=== PATIENT | female | born 1985 | race Caucasian/White ===

== ENCOUNTER 2019-02-09 14:49 | Emergency (ER) | payer SELFPAY ==
--- NOTE | 2019-02-09 15:20 | ER ---
Nurse's Notes [facility] Name: Britney Barroso Age: 33 yrs Sex: Female : 1985 Arrival Date: 02/09/2019 Time: 14:51 Bed 18 Private MD: Diagnosis: Bronchitis, not specified as acute or chronic;Acute sinusitis Presentation: 02/09 14:59 Presenting complaint: Patient states: sinus congestion for 2 weeks, started with cough la1 today. Transition of care: patient was not received from another setting of care. Onset of symptoms was February 09, 2019. Risk Assessment: Do you want to hurt yourself or someone else? Patient reports no desire to harm self or others. Initial Sepsis Screen: Does the patient meet any 2 criteria? No. Patient's initial sepsis screen is negative. Does the patient have a suspected source of infection? No. Patient's initial sepsis screen is negative. Care prior to arrival: None. 14:59 Method Of Arrival: Ambulatory la1 14:59 Acuity: CHRIS 4 la1 Triage Assessment: 15:20 General: Appears in no apparent distress. comfortable, Behavior is calm, cooperative, ch appropriate for age. 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 - Social history:: Smoking status: Patient/guardian denies using tobacco. - Ebola Screening: : No symptoms or risks identified at this time. Screenin:00 Abuse screen: Denies threats or abuse. Denies injuries from another. Nutritional ch screening: No deficits noted. Tuberculosis screening: No symptoms or risk factors identified. Fall Risk None identified. Assessment: 15:00 General: Appears in no apparent distress. comfortable, Behavior is calm. Pain: Complains of pain in forehead, right eye, right cheek, left cheek and left eye Pain currently is 7 out of 10 on a pain scale. Pain began gradually. 15:00 Neuro: No deficits noted. Respiratory: No deficits noted. Reports cough that is. GI: No ch signs and/or symptoms were reported involving the gastrointestinal system. EENT: Reports nasal congestion. Derm: No signs and/or symptoms reported regarding the dermatologic system. Vital Signs: 15:00 BP 111 / 81; Pulse 84; Resp 16; Temp 98.4; Pulse Ox 100% on R/A; Weight 86.18 kg; la1 Height 5 ft. 3 in. (160.02 cm); 15:00 Body Mass Index 33.66 (86.18 kg, 160.02 cm) la1 ED Course: 14:51 Patient arrived in ED. mr 14:57 Kya Hall F[facility]-C [facility]. snw 14:57 Bhupendra Melchor MD is Attending Physician. snw 14:59 Triage completed. la1 15:00 Arm band placed on left wrist. la1 15:00 Patient has correct armband on for positive identification. Bed in low position. Call light in reach. 15:00 No provider procedures requiring assistance completed. Patient did not have IV access ch during this emergency room visit. 15:19 Farzaneh Cronin, RN is Primary Nurse. ch 15:30 No apparent distress. Resting quietly. ch Administered Medications: 15:21 Drug: Augmentin 875 mg Route: PO; ch 15:32 Follow up: Response: Medication administered at discharge. ch 15:22 Drug: Pepcid 20 mg Route: PO; ch 15:32 Follow up: Response: Medication administered at discharge. ch 15:30 Drug: predniSONE 40 mg Route: PO; ch 15:32 Follow up: Response: Medication administered at discharge. ch 15:31 CANCELLED (Patient Refused): ZyrTEC - Cetirizine 10 mg PO once ch Outcome: 15:19 Discharge ordered by . snw 15:30 Discharged to home ambulatory. ch 15:30 Condition: improved 15:30 Discharge instructions given to patient, Instructed on discharge instructions, follow up and referral plans. medication usage, Demonstrated understanding of instructions, follow-up care, medications, Prescriptions given X 4. 15:33 Patient left the ED. ch Signatures: Farzaneh Cronin, SHARIFA SKAGGS Kya Hall FNP-C FNP-Albaro Sheila Gorman, Omi, RN RN la1
--- NOTE | 2019-02-09 15:20 | EDPHYS ---
Physician Documentation [facility] Name: Britney Barroso Age: 33 yrs Sex: Female : 1985 Arrival Date: 02/09/2019 Time: 14:51 Bed 18 Private MD: ED Physician Bhupendra Melchor HPI: 02/09 15:38 This 33 yrs old Female presents to ER via Ambulatory with complaints of Sinus snw Congestion. 15:38 The patient or guardian reports cough, described as moderate, congestion. Onset: The snw symptoms/episode began/occurred gradually, 2.5 week(s) ago, and became worse and became persistent. Severity of symptoms: At their worst the symptoms were moderate, in the emergency department the symptoms are unchanged. Associated signs and symptoms: Pertinent positives: sore throat, cough, congestion. It is unknown whether or not the patient has had similar symptoms in the past. It is unknown whether or not the patient has recently seen a physician. 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 - Social history:: Smoking status: Patient/guardian denies using tobacco. - Ebola Screening: : No symptoms or risks identified at this time. ROS: 15:28 Eyes: Negative for injury, pain, redness, and discharge. snw 15:28 Neck: Negative for injury, pain, and swelling, Cardiovascular: Negative for chest pain, palpitations, and edema. 15:28 Abdomen/GI: Negative for abdominal pain, nausea, vomiting, diarrhea, and constipation, Back: Negative for injury and pain, : Negative for injury, bleeding, discharge, and swelling, MS/Extremity: Negative for injury and deformity, Skin: Negative for injury, rash, and discoloration. 15:28 Constitutional: Positive for body aches, malaise. 15:28 ENT: Positive for ear pain. 15:28 Respiratory: Positive for cough. 15:28 Neuro: Positive for headache, with cough. Exam: 15:27 Constitutional: This is a well developed, well nourished patient who is awake, alert, snw and in no acute distress. 15:27 Eyes: Pupils equal round and reactive to light, extra-ocular motions intact. Lids and lashes normal. Conjunctiva and sclera are non-icteric and not injected. Cornea within normal limits. Periorbital areas with no swelling, redness, or edema. ENT: Nares patent. No nasal discharge, no septal abnormalities noted. Tympanic membranes are normal and external auditory canals are clear. Oropharynx with no redness, swelling, or masses, exudates, or evidence of obstruction, uvula midline. Mucous membranes moist. Neck: Trachea midline, no thyromegaly or masses palpated, and no cervical lymphadenopathy. Supple, full range of motion without nuchal rigidity, or vertebral point tenderness. No Meningismus. Chest/axilla: Normal chest wall appearance and motion. Nontender with no deformity. No lesions are appreciated. Cardiovascular: Regular rate and rhythm with a normal S1 and S2. No gallops, murmurs, or rubs. Normal PMI, no JVD. No pulse deficits. Abdomen/GI: Soft, non-tender, with normal bowel sounds. No distension or tympany. No guarding or rebound. No evidence of tenderness throughout. Back: No spinal tenderness. No costovertebral tenderness. Full range of motion. Skin: Warm, dry with normal turgor. Normal color with no rashes, no lesions, and no evidence of cellulitis. MS/ Extremity: Pulses equal, no cyanosis. Neurovascular intact. Full, normal range of motion. Neuro: Awake and alert, GCS 15, oriented to person, place, time, and situation. Cranial nerves II-XII grossly intact. Motor strength 5/5 in all extremities. Sensory grossly intact. Cerebellar exam normal. Normal gait. Psych: Awake, alert, with orientation to person, place and time. Behavior, mood, and affect are within normal limits. 15:27 Head/face: Sinus tenderness, that is moderate. 15:27 Respiratory: the patient does not display signs of respiratory distress, Respirations: normal, Breath sounds: + upper airway congestion. bronchitic cough. Vital Signs: 15:00 BP 111 / 81; Pulse 84; Resp 16; Temp 98.4; Pulse Ox 100% on R/A; Weight 86.18 kg; la1 Height 5 ft. 3 in. (160.02 cm); 15:00 Body Mass Index 33.66 (86.18 kg, 160.02 cm) la1 MDM: 15:01 Patient medically screened. snw 15:28 Data reviewed: vital signs, nurses notes. Data interpreted: Pulse oximetry: on room air snw is 100 %. Interpretation: normal. Counseling: I had a detailed discussion with the patient and/or guardian regarding: the historical points, exam findings, and any diagnostic results supporting the discharge/admit diagnosis, the presence of at least one elevated blood pressure reading (>120/80) during this emergency department visit, the need for outpatient follow up, to return to the emergency department if symptoms worsen or persist or if there are any questions or concerns that arise at home. Special discussion: I have referred the patient to see his PCP for further evaluation of high blood pressure. Based on the history and exam findings, there is no indication for further emergent testing or inpatient evaluation. I discussed with the patient/guardian the need to see the primary care provider for further evaluation of the symptoms. Administered Medications: 15:21 Drug: Augmentin 875 mg Route: PO; ch 15:32 Follow up: Response: Medication administered at discharge. ch 15:22 Drug: Pepcid 20 mg Route: PO; ch 15:32 Follow up: Response: Medication administered at discharge. ch 15:30 Drug: predniSONE 40 mg Route: PO; ch 15:32 Follow up: Response: Medication administered at discharge. ch 15:31 CANCELLED (Patient Refused): ZyrTEC - Cetirizine 10 mg PO once ch Disposition: 16:22 Co-signature as Attending Physician, Bhupendra Melchor MD I agree with the assessment and kdr plan of care. Disposition: 02/09/19 15:19 Discharged to Home. Impression: Bronchitis, not specified as acute or chronic, Acute sinusitis. - Condition is Stable. - Discharge Instructions: Acute Bronchitis, Adult, Hypertension, Sinusitis, Adult, Rehydration, Adult. - Prescriptions for Augmentin 875- 125 mg Oral Tablet - take 1 tablet by ORAL route every 12 hours for 10 days; 20 tablet. Zyrtec 10 mg Oral Tablet - take 1 tablet by ORAL route once daily As needed; 20 tablet. Tessalon Perles 100 mg Oral Capsule - take 1 capsule by ORAL route every 8 hours As needed; 15 capsule. Prednisone 20 mg Oral Tablet - take 2 tablet by ORAL route once daily for 5 days; 10 tablet. - Work release form, Medication Reconciliation Form, Thank You Letter, Antibiotic Education, Prescription Opioid Use form. - Follow up: Private Physician; When: 1 week; Reason: Recheck today's complaints, Continuance of care, Re-evaluation by your physician. Follow up: Emergency Department; When: As needed; Reason: Worsening of condition. Signatures: Farzaneh Cronin, RN RN Bhupendra Melchor MD MD [facility] Kya Hall, FIRE HYDRANT MECHANIC-C FIRE HYDRANT MECHANIC-Csnw Omi España RN RN la1 Corrections: (The following items were deleted from the chart) 15:31 15:18 ZyrTEC - Cetirizine 10 mg PO once ordered. [facility] 15:31 15:31 ZyrTEC - Cetirizine 10 mg PO once ordered. [facility] 15:33 15:19 02/09/2019 15:19 Discharged to Home. Impression: Bronchitis, not specified as ch acute or chronic; Acute sinusitis. Condition is Stable. Forms are Medication Reconciliation Form, Thank You Letter, Antibiotic Education, Prescription Opioid Use. Follow up: Private Physician; When: 1 week; Reason: Recheck today's complaints, Continuance of care, Re-evaluation by your physician. Follow up: Emergency Department; When: As needed; Reason: Worsening of condition. snw
[2019-02-09] MEDS ORDERED: CETIRIZINE HCL 5 MG TABLET ONE (15:22)
[2019-02-09] MEDS ORDERED: AMOX/K CLAV 875 MG TAB ONE (15:23)
[2019-02-09] MEDS ORDERED: predniSONE 20 MG TAB ONE (15:23)
[2019-02-09] MEDS ORDERED: FAMOTIDINE 20 MG TAB ONE (15:23)
[2019-02-09 16:23] VITALS: BP 111/81; TEMP 98.4; O2SAT 100
== END 2019-02-09 15:33 | disposition home or self-care (01) ==
LOC: ER 14:49
DX: J40 Bronchitis, not specified as acute or chronic (principal); J01.90 Acute sinusitis, unspecified; Z91.09 Other allergy status, other than to drugs and biological substances
CPT/HCPCS: 99283; J7512

== ENCOUNTER 2019-03-17 15:26 | Emergency (ER) | payer SELFPAY ==
--- NOTE | 2019-03-17 16:48 | ER ---
Nurse's Notes [facility] Name: Britney Barroso Age: 33 yrs Sex: Female : 1985 Arrival Date: 03/17/2019 Time: 15:29 Bed 9 Private MD: Diagnosis: Cough Presentation: 03/17 15:34 Presenting complaint: Patient states: cough for 1.5 months. Transition of care: patient la1 was not received from another setting of care. Onset of symptoms was March 17, 2019. Risk Assessment: Do you want to hurt yourself or someone else? Patient reports no desire to harm self or others. Initial Sepsis Screen: Does the patient meet any 2 criteria? No. Patient's initial sepsis screen is negative. Does the patient have a suspected source of infection? No. Patient's initial sepsis screen is negative. Care prior to arrival: None. 15:34 Method Of Arrival: Ambulatory la1 15:34 Acuity: CHRIS 5 la1 Historical: - Allergies: 15:35 Iodine; la1 - PMHx: 15:35 Anemia; Asthma; Hypokalemia; la1 - Immunization history:: Adult Immunizations up to date. - Social history:: Smoking status: Patient/guardian denies using tobacco. - Ebola Screening: : No symptoms or risks identified at this time. Screenin:32 Abuse screen: Denies threats or abuse. Denies injuries from another. Nutritional ss screening: No deficits noted. Tuberculosis screening: Never had TB. Fall Risk None identified. Vital Signs: 15:35 BP 121 / 80; Pulse 86; Resp 16; Temp 97.1; Pulse Ox 100% on R/A; Weight 86.18 kg; la1 Height 5 ft. 3 in. (160.02 cm); 15:35 Body Mass Index 33.66 (86.18 kg, 160.02 cm) la1 ED Course: 15:29 Patient arrived in ED. as 15:34 Triage completed. la1 15:35 Arm band placed on right wrist. la1 16:10 Sanjay Eagle PA is PHCP. jr8 16:10 David Castillo MD is Attending Physician. jr8 16:32 June Gilliland RN is Primary Nurse. ss 16:32 Patient has correct armband on for positive identification. Bed in low position. Call ss light in reach. 16:47 XRAY Chest Pa And Lat (2 Views) In Process Unspecified. EDMS 16:48 Joshua Ryan MD is Referral Physician. jr8 Administered Medications: No medications were administered Outcome: 16:48 Discharge ordered by . gifty 17:09 Patient left the ED. eb Signatures: Dispatcher [employer] EDKY Maren Franklin Shelby, RN RN Sanjay Eagle PA PA jr8 Omi España RN RN la Mai Haines eb
--- NOTE | 2019-03-17 16:49 | EDPHYS ---
Physician Documentation [facility] Name: Britney Barroso Age: 33 yrs Sex: Female : 1985 Arrival Date: 03/17/2019 Time: 15:29 Bed 9 Private MD: ED Physician David Castillo HPI: 03/17 16:36 This 33 yrs old Female presents to ER via Ambulatory with complaints of Cough.jr8 16:36 The patient or guardian reports cough, that is intermittent, described as moderate, jr8 with no sputum. Onset: The symptoms/episode began/occurred gradually, 2 month(s) ago. Severity of symptoms: At their worst the symptoms were moderate, in the emergency department the symptoms are unchanged. Modifying factors: The symptoms are alleviated by nothing, the symptoms are aggravated by nothing. Associated signs and symptoms: The patient has no apparent associated signs or symptoms. The patient has not experienced similar symptoms in the past. The patient has not recently seen a physician. Patient stated that she had URI about 2 months ago. Stated that since then she has had a persistent cough that is not going away despite OTC medications and prescribed meds at that time . Historical: - Allergies: 15:35 Iodine; la1 - PMHx: 15:35 Anemia; Asthma; Hypokalemia; la1 - Immunization history:: Adult Immunizations up to date. - Social history:: Smoking status: Patient/guardian denies using tobacco. - Ebola Screening: : No symptoms or risks identified at this time. ROS: 16:36 Eyes: Negative for injury, pain, redness, and discharge, ENT: Negative for injury, jr8 pain, and discharge, Neck: Negative for injury, pain, and swelling, Cardiovascular: Negative for chest pain, palpitations, and edema, Abdomen/GI: Negative for abdominal pain, nausea, vomiting, diarrhea, and constipation, Back: Negative for injury and pain, MS/Extremity: Negative for injury and deformity, Skin: Negative for injury, rash, and discoloration, Neuro: Negative for headache, weakness, numbness, tingling, and seizure. 16:36 Respiratory: Positive for cough, Negative for dyspnea on exertion, shortness of breath, sputum production, wheezing. Exam: 16:36 Eyes: Pupils equal round and reactive to light, extra-ocular motions intact. Lids and jr8 lashes normal. Conjunctiva and sclera are non-icteric and not injected. Cornea within normal limits. Periorbital areas with no swelling, redness, or edema. ENT: Nares patent. No nasal discharge, no septal abnormalities noted. Tympanic membranes are normal and external auditory canals are clear. Oropharynx with no redness, swelling, or masses, exudates, or evidence of obstruction, uvula midline. Mucous membranes moist. Neck: Trachea midline, no thyromegaly or masses palpated, and no cervical lymphadenopathy. Supple, full range of motion without nuchal rigidity, or vertebral point tenderness. No Meningismus. Cardiovascular: Regular rate and rhythm with a normal S1 and S2. No gallops, murmurs, or rubs. Normal PMI, no JVD. No pulse deficits. Abdomen/GI: Soft, non-tender, with normal bowel sounds. No distension or tympany. No guarding or rebound. No evidence of tenderness throughout. Back: No spinal tenderness. No costovertebral tenderness. Full range of motion. Skin: Warm, dry with normal turgor. Normal color with no rashes, no lesions, and no evidence of cellulitis. MS/ Extremity: Pulses equal, no cyanosis. Neurovascular intact. Full, normal range of motion. Neuro: Awake and alert, GCS 15, oriented to person, place, time, and situation. Cranial nerves II-XII grossly intact. Motor strength 5/5 in all extremities. Sensory grossly intact. Cerebellar exam normal. Normal gait. 16:36 Respiratory: the patient does not display signs of respiratory distress, Respirations: normal, symetrical, no use of accessory muscles, no grunting, no evidence of nasal flaring, no prolonged exhalations, no pursed lip breathing, no retractions, no shallow respirations, no splinting, no tachypnea, Breath sounds: are clear throughout, no bronchial sounds, no decreased breath sounds, no rales, rhonchi, no stridor, no wheezing. Vital Signs: 15:35 BP 121 / 80; Pulse 86; Resp 16; Temp 97.1; Pulse Ox 100% on R/A; Weight 86.18 kg; la1 Height 5 ft. 3 in. (160.02 cm); 15:35 Body Mass Index 33.66 (86.18 kg, 160.02 cm) la1 MDM: 16:12 Patient medically screened. jr8 16:47 Data reviewed: vital signs, nurses notes, radiologic studies, plain films. Data jr8 interpreted: Pulse oximetry: on room air is 100 %. Interpretation: normal. 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 03/17 16:20 Order name: XRAY Chest Pa And Lat (2 Views) jr8 Administered Medications: No medications were administered Disposition: 17:30 Co-signature as Attending Physician, David Castillo MD. rn Disposition: 03/17/19 16:48 Discharged to Home. Impression: Cough. - Condition is Stable. - Discharge Instructions: Cough, Adult. - Prescriptions for Prednisone 20 mg Oral Tablet - take 1 tablet by ORAL route once daily for 5 days; 5 tablet. Zithromax Z- Sincere 250 mg Oral Tablet - take 1 tablet by ORAL route as directed for 5 days Day 1 - take two (2) tablets one time. Day 2, 3, 4 , 5 take one (1) tablet once daily.; 6 tablet. Albuterol Sulfate 90 mcg/actuation - inhale 1-2 puff by INHALATION route every 4-6 hours; 1 Inhaler. - Medication Reconciliation Form, Thank You Letter, Antibiotic Education, Prescription Opioid Use, Work release form form. - Follow up: Joshua Ryan MD; When: 7 - 10 days; Reason: Recheck today's complaints, Continuance of care, Re-evaluation by your physician. - Problem is new. - Symptoms are unchanged. Signatures: Dispatcher [employer] EDMS David Castillo MD MD rn Roszak, Josh, PA PA jr8 Omi España RN RN [email or web address] Mai Haines Corrections: (The following items were deleted from the chart) 17:09 16:48 03/17/2019 16:48 Discharged to Home. Impression: Cough. Condition is Stable. eb Forms are Medication Reconciliation Form, Thank You Letter, Antibiotic Education, Prescription Opioid Use. Follow up: Joshua Ryan; When: 7 - 10 days; Reason: Recheck today's complaints, Continuance of care, Re-evaluation by your physician. Problem is new. Symptoms are unchanged. jr8
[2019-03-17 17:58] VITALS: BP 121/80; TEMP 97.1; O2SAT 100
--- NOTE | 2019-03-17 18:06 | RAD REPORT ---
EXAM DESCRIPTION: Nima [place] (2 Views)03/17/2019 4:42 pm CLINICAL HISTORY: Cough COMPARISON: None FINDINGS: The lungs appear clear of acute infiltrate. The heart is normal size IMPRESSION: No acute abnormalities displayed
== END 2019-03-17 17:09 | disposition home or self-care (01) ==
LOC: ER 15:26
DX: R05 Cough (principal); Z91.048 Other nonmedicinal substance allergy status
CPT/HCPCS: 71046; 99282

== ENCOUNTER 2019-08-08 09:01 | Emergency (ER) | payer OTHER, SELFPAY ==
[2019-08-08 09:45] LABS: Absolute Lymphocytes (CBC) 1.3 K/uL (0.7-4.9); Hematocrit 33.7 % (36.0-45.0); Lymphocytes % 24.8 % (15.3-44.8); MPV 8.3 fL (7.6-11.3); RBC Red Blood Cell Count 4.18 M/uL (3.86-4.86)
[2019-08-08 09:55] LABS: Urine Blood 3+ (NEG); Urine Glucose NEGATIVE (NEG); Urine Protein NEGATIVE (NEG)
[2019-08-08 10:01] LABS: BUN Blood Urea Nitrogen 7 mg/dL (7-18); Bicarbonate 27 mmol/L (21-32); Glucose Level 92 mg/dL (74-106); Potassium 3.7 mmol/L (3.5-5.1); Sodium Level 142 mmol/L (136-145)
[2019-08-08 10:02] LABS: HCG, Quantitative < 1 mIU/mL (1-3)
--- NOTE | 2019-08-08 11:08 | EDPHYS ---
Physician Documentation [facility] Name: Britney Barroso Age: 33 yrs Sex: Female : 1985 Arrival Date: 08/08/2019 Time: 09:02 Bed 13 Private MD: CAMRYN Physician Lamberto Parekh HPI: 08/07 09:09 This 33 yrs old Female presents to ER via Unassigned with complaints of kb Vaginal Bleeding, + Preg <12wks. 09:09 The patient presents to the emergency department with abdominal pain, that started kb yesterday, vaginal bleeding, that is moderate. course: care: at a clinic, Leakage of Fluid: none appreciated. Previous pregnancies: in previous pregnancies patient has had. Associated signs and symptoms: Pertinent positives: abdominal pain, vaginal bleeding, Pertinent negatives: chest pain, diarrhea, dysuria, fever, frequency, nausea, ruptured membranes, seizure, shortness of breath, vaginal discharge, vomiting. The patient has not experienced similar symptoms in the past. The patient has not recently seen a physician. 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 - Social history:: Smoking status: Patient denies any tobacco usage or history of. ROS: 09:15 Constitutional: Negative for fever, chills, and weight loss, Cardiovascular: Negative kb for chest pain, palpitations, and edema, Respiratory: Negative for shortness of breath, cough, wheezing, and pleuritic chest pain, Back: Negative for injury and pain, MS/Extremity: Negative for injury and deformity, Skin: Negative for injury, rash, and discoloration, Neuro: Negative for headache, weakness, numbness, tingling, and seizure. 09:15 Abdomen/GI: Positive for abdominal pain, Negative for nausea, vomiting, and diarrhea. 09:15 : Positive for vaginal bleeding. Exam: 09:15 Constitutional: This is a well developed, well nourished patient who is awake, alert, kb and in no acute distress. Head/Face: Normocephalic, atraumatic. Chest/axilla: Normal chest wall appearance and motion. Nontender with no deformity. No lesions are appreciated. Cardiovascular: Regular rate and rhythm with a normal S1 and S2. No gallops, murmurs, or rubs. Normal PMI, no JVD. No pulse deficits. Respiratory: Lungs have equal breath sounds bilaterally, clear to auscultation and percussion. No rales, rhonchi or wheezes noted. No increased work of breathing, no retractions or nasal flaring. Back: No spinal tenderness. No costovertebral tenderness. Full range of motion. Skin: Warm, dry with normal turgor. Normal color with no rashes, no lesions, and no evidence of cellulitis. MS/ Extremity: Pulses equal, no cyanosis. Neurovascular intact. Full, normal range of motion. Neuro: Awake and alert, GCS 15, oriented to person, place, time, and situation. Cranial nerves II-XII grossly intact. Motor strength 5/5 in all extremities. Sensory grossly intact. Cerebellar exam normal. Normal gait. 09:15 Abdomen/GI: Inspection: abdomen appears normal, Bowel sounds: normal, in all quadrants, Palpation: soft, in all quadrants, moderate abdominal tenderness, in all quadrants. Vital Signs: 09:13 BP 132 / 98; Pulse 83; Resp 17; Temp 97.3; Pulse Ox 100% ; Weight 89.36 kg; Height 5 jl7 ft. 6 in. (167.64 cm); Pain 8/10; 09:40 BP 105 / 73; Pulse 78; Resp 16; Temp 97.5(TE); Pulse Ox 100% on R/A; 5 10:45 BP 108 / 78; Pulse 72; Resp 16 S; Pulse Ox 100% on R/A; jl7 09:13 Body Mass Index 31.80 (89.36 kg, 167.64 cm) jl7 MDM: 09:05 Patient medically screened. kb 09:16 Data reviewed: vital signs, nurses notes. Data interpreted: Pulse oximetry: on room air kb is 100 %. Interpretation: normal. 11:05 Counseling: I had a detailed discussion with the patient and/or guardian regarding: the kb historical points, exam findings, and any diagnostic results supporting the discharge/admit diagnosis, lab results, radiology results, the need for outpatient follow up, a family practitioner, to return to the emergency department if symptoms worsen or persist or if there are any questions or concerns that arise at home. 08/07 09:05 Order name: Quantitative Hcg kb 08/07 09:05 Order name: Abo/rh Typing; Complete Time: 09:54 kb 08/07 09:05 Order name: Basic Metabolic Panel; Complete Time: 10:02 kb 08/07 09:05 Order name: CBC with Diff; Complete Time: 09:47 kb 08/07 09:07 Order name: HCG, Quantitative; Complete Time: 10:02 EDMS 08/07 09:41 Order name: Urine Dipstick--Ancillary (enter results); Complete Time: 09:56 bd 08/07 09:05 Order name: Urine Test (obtain specimen); Complete Time: 09:37 kb 08/07 09:05 Order name: IV Saline Lock; Complete Time: 09:37 kb 08/07 09:05 Order name: Labs collected and sent; Complete Time: 09:37 kb 08/07 09:05 Order name: NPO; Complete Time: 09:38 kb 08/07 09:05 Order name: Urine Dipstick-Ancillary (obtain specimen); Complete Time: 09:37 kb 08/07 09:39 Order name: Diet Npo; Complete Time: 09:40 mh5 08/07 09:41 Order name: Urine --Ancillary (enter results); Complete Time: 09:56 bd 08/07 10:06 Order name: US Transvaginal Study (Probe) Administered Medications: No medications were administered Point of Care Testing: Urine : 11:16 hCG Reading: Negative; Control Reading: Positive; jl7 Disposition: 12:47 Co-signature as Attending Physician, Lamberto Parekh MD I agree with the assessment and fazal plan of care. Disposition: 08/08/19 11:07 Discharged to Home. Impression: Abnormal uterine and vaginal bleeding, unspecified. - Condition is Stable. - Discharge Instructions: Abnormal Uterine Bleeding, [id number]. - Medication Reconciliation Form, Thank You Letter, Antibiotic Education, Prescription Opioid Use form. - Follow up: Emergency Department; When: As needed; Reason: Worsening of condition. Follow up: Private Physician; When: 2 - 3 days; Reason: Recheck today's complaints, Continuance of care, Re-evaluation by your physician. Signatures: Dispatcher [employer] Lavinia De La Vega, JAMEL-Arin MCCULLOUGH-Lamberto Dennison MD MD cha Leal, Jahala, RN RN jl7 Corrections: (The following items were deleted from the chart) 11:17 11:07 08/08/2019 11:07 Discharged to Home. Impression: Abnormal uterine and vaginal jl7 bleeding, unspecified. Condition is Stable. Forms are Medication Reconciliation Form, Thank You Letter, Antibiotic Education, Prescription Opioid Use. Follow up: Emergency Department; When: As needed; Reason: Worsening of condition. Follow up: Private Physician; When: 2 - 3 days; Reason: Recheck today's complaints, Continuance of care, Re-evaluation by your physician. kb
--- NOTE | 2019-08-08 11:08 | ER ---
Nurse's Notes [facility] Name: Britney Barroso Age: 33 yrs Sex: Female : 1985 Arrival Date: 08/08/2019 Time: 09:02 Bed 13 Private MD: Diagnosis: Abnormal uterine and vaginal bleeding, unspecified Presentation: 08/07 09:13 Chief complaint: Patient states: had intercourse yesterday morning, started bleeding jl7 last night with lower abdominal pain. Coronavirus screen: Proceed with normal triage. Patient denies a cough. Patient denies shortness of breath or difficulty breathing. Patient denies measured and/or subjective temperature greater than 100.4F prior to today's visit. Patient denies travel on a cruise ship or to a country the [facility] currently lists as an affected area. Patient denies contact with known and/or suspected case of COVID-19. Ebola Screen: No symptoms or risks identified at this time. Initial Sepsis Screen: Does the patient meet any 2 criteria? No. Patient's initial sepsis screen is negative. Does the patient have a suspected source of infection? No. Patient's initial sepsis screen is negative. Risk Assessment: Do you want to hurt yourself or someone else? Patient reports no desire to harm self or others. Onset of symptoms was August 07, 2019. 09:13 Method Of Arrival: Ambulatory 7 09:13 Acuity: CHRIS 3 jl7 Triage Assessment: 09:16 General: Appears in no apparent distress. uncomfortable, Behavior is cooperative, jl7 appropriate for age, anxious. Pain: Complains of pain in suprapubic area, right lower quadrant and left lower quadrant Pain currently is 8 out of 10 on a pain scale. Neuro: Level of Consciousness is awake, alert, obeys commands, Oriented to person, place, time, situation. Cardiovascular: Patient's skin is warm and dry. Respiratory: Airway is patent Respiratory effort is even, unlabored, Respiratory pattern is regular, symmetrical. GI: Last BM was August 06, 2019. Reports normal bowel habits. : Reports vaginal bleeding that is. Derm: Skin is pink, warm \T\ dry. 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 - Social history:: Smoking status: Patient denies any tobacco usage or history of. Screenin:00 Abuse screen: Denies threats or abuse. Denies injuries from another. Nutritional [facility] screening: No deficits noted. Tuberculosis screening: No symptoms or risk factors identified. Fall Risk IV access (20 points). Total Sexton Fall Scale indicates No Risk (0-24 pts). Assessment: 09:15 General: See triage assessment. [facility] 10:15 Reassessment: Patient appears in no apparent distress at this time. No changes from [facility] previously documented assessment. Patient and/or family updated on plan of care and expected duration. Pain level reassessed. Patient is alert, oriented x 3, equal unlabored respirations, skin warm/dry/pink. Vital Signs: 09:13 BP 132 / 98; Pulse 83; Resp 17; Temp 97.3; Pulse Ox 100% ; Weight 89.36 kg; Height 5 [facility] ft. 6 in. (167.64 cm); Pain 8/10; 09:40 BP 105 / 73; Pulse 78; Resp 16; Temp 97.5(TE); Pulse Ox 100% on R/A; 5 10:45 BP 108 / 78; Pulse 72; Resp 16 S; Pulse Ox 100% on R/A; jl7 09:13 Body Mass Index 31.80 (89.36 kg, 167.64 cm) [facility] ED Course: 09:02 Patient arrived in ED. ag5 09:04 Mar Lovelace, SHARIFA is Primary Nurse. jl7 09:05 Lavinia Cruz FNP-C is PHCP. kb 09:05 Lamberto Parekh MD is Attending Physician. kb 09:15 Triage completed. jl7 09:16 Arm band placed on right wrist. jl7 09:37 Quantitative Hcg Sent. mh5 09:37 Abo/rh Typing Sent. 5 09:37 Basic Metabolic Panel Sent. 5 09:37 CBC with Diff Sent. 5 09:38 HCG, Quantitative Sent. 5 09:39 Patient has correct armband on for positive identification. Placed in gown. Bed in low mh5 position. Call light in reach. Side rails up X 1. Warm blanket given. Pulse ox on. NIBP on. 09:40 Initial lab(s) drawn, by me, sent to lab. Inserted saline lock: 22 gauge in left mh5 antecubital area, using aseptic technique. Blood collected. 10:00 No provider procedures requiring assistance completed. jl7 10:52 Transvaginal Study (Probe) In Process Unspecified. EDMS 11:13 IV discontinued, Pressure dressing applied. [facility] 11:15 Patient did not have IV access during this emergency room visit. intact, bleeding jl7 controlled, No redness/swelling at site. Pressure dressing applied. Administered Medications: No medications were administered Point of Care Testing: Urine : 11:16 hCG Reading: Negative; Control Reading: Positive; jl7 Outcome: 11:07 Discharge ordered by . kb 11:15 Discharged to home ambulatory. jl7 11:15 Condition: stable 11:15 Discharge instructions given to patient, Instructed on discharge instructions, follow up and referral plans. Demonstrated understanding of instructions, follow-up care. 11:17 Patient left the ED. jl7 Signatures: Dispatcher [employer] EDLavinia Huff, MEDICAL RECEPTION-Arin SUAREZP-Veda Parker 5 Mar Lovelace, SHARIFA RN jl7 Lei Martinez ag5 Corrections: (The following items were deleted from the chart) 11:15 10:00 Patient did not have IV access during this emergency room visit. intact, bleeding jl7 controlled, No redness/swelling at site. Pressure dressing applied, jl7
--- NOTE | 2019-08-08 11:18 | RAD REPORT ---
EXAM DESCRIPTION: US - Transvaginal Study Probe - 08/08/2019 10:52 am CLINICAL HISTORY: Abdominal pain. Vaginal bleeding COMPARISON: none FINDINGS: The uterus measures 8 x 4 x 5cm. Evaluation of the echotexture of the uterus is suboptimal without visualization of a gross fibroid. The endometrial stripe was poorly visualized. The ovaries are normal in size and echotexture. Right and left adnexal unremarkable No significant free fluid is seen. IMPRESSION: The endometrial stripe is poorly visualized. It does not appear to be grossly abnormal. It is recommended that patient have a followup endovaginal sonogram in 4 weeks for re-evaluation Suboptimal evaluation of the the uterine echotexture. This also can be re-evaluated on subsequent ult rasound
[2019-08-08 11:38] VITALS: O2SAT 100
[2019-08-08 11:40] VITALS: TEMP 97.5
[2019-08-08 11:41] VITALS: BP 108/78
== END 2019-08-08 11:17 | disposition home or self-care (01) ==
LOC: ER 09:01
DX: O46.90 Antepartum hemorrhage, unspecified, unspecified trimester (principal); Z3A.00 Weeks of gestation of pregnancy not specified
CPT/HCPCS: 36415; 76830; 80048; 81003; 81025; 84702; 85025; 86900; 86901; 99284

== ENCOUNTER 2020-11-20 11:57 | Emergency (ER) | payer OTHER ==
--- OUTSIDE RECORDS SUMMARY | 2020-11-20 12:00 | XMS REPORT | Continuity of Care Document ---
:1985 Author Organization [facility] t Address [address] [place] [address] Care Team Providers Name Role Phone Johann Motley DO Attending Clinician Doctor Unassigned, Name Attending Clinician Unavailable Cecilia REDDY Attending Clinician Problems This patient has no known problems. Allergies, Adverse Reactions, Alerts This patient has no known allergies or adverse reactions. Medications This patient has no known medications. Procedures This patient has no known procedures. Encounters Start End Encounter Admission Attending Care Care Encounter Source Date/Time Date/Time Type Type Clinicians Facility Department ID 2020-07-17 2020-07-17 Patient Tolu [facility] [id number] 00:00:00 00:00:00 Outreach [place] PRIMARY [id number] Johann [facility] [id number] PAVILLION [id number] 2019-07-08 2019-07-08 Patient Doctor [facility] [id number] 00:00:00 00:00:00 Secure Msg Unassigned, [employer] [employer] [id number] [place] [facility] [id number] MATERNAL [id number] & CHILD [address] [place] [address] 2019-07-05 2019-07-05 Office SHEY Brooks [id number] 14:08:45 16:01:30 Visit Georgie [employer] [id number] REG[facility]AL [id number] MATERNAL [id number] & [address] Results This patient has no known results.
[2020-11-20 12:49] LABS: Urine Blood Trace-intact (Negative); Urine Glucose Negative (Negative); Urine Protein Negative (Negative); Urine Specific Gravity 1.015 (1.005-1.030)
[2020-11-20 13:13] LABS: Urine Specific Gravity/Preg 1.015 (1.005-1.030)
--- NOTE | 2020-11-20 13:28 | RAD REPORT ---
EXAM DESCRIPTION: CT - Head Brain Wo Cont - 11/20/2020 1:19 pm CLINICAL HISTORY: Pain;Headache Headache, drowsiness, sensitivity to light. COMPARISON: No comparisons TECHNIQUE: All CT scans are performed using dose optimization technique as appropriate and may inclu de automated exposure control or mA/KV adjustment according to patient size. FINDINGS: No intracranial hemorrhage, hydrocephalus or extra-axial fluid collection.No areas of brai n edema or evidence of midline shift. The paranasal sinuses and mastoids are clear. The calvarium is intact. IMPRESSION: No acute intracranial abnormality.
[2020-11-20 14:53] LABS: Absolute Lymphocytes (CBC) 1.9 K/uL (0.7-4.9); Basophils % 1.2 % (0-1.3); Hematocrit 36.2 % (36.0-45.0); Lymphocytes % 27.7 % (15.3-44.8); MPV 8.2 fL (7.6-11.3)
[2020-11-20] MEDS ORDERED: MECLIZINE HCL 12.5 MG TAB ONE (15:06)
[2020-11-20] MEDS ORDERED: ONDANSETRON 4 MG/2 ML VIAL ONE (15:06)
[2020-11-20] MEDS ORDERED: NA CHLORIDE 0.9% 1,000 ML ONE (15:06)
[2020-11-20] MEDS ORDERED: DIAZEPAM 5 MG TABLET ONE (15:06)
[2020-11-20 15:11] LABS: BUN Blood Urea Nitrogen 5 mg/dL (7-18); Bicarbonate 29 mmol/L (21-32); Glucose Level 104 mg/dL (74-106); Potassium 4.1 mmol/L (3.5-5.1); Sodium Level 139 mmol/L (136-145)
[2020-11-20] MEDS ORDERED: CIPROFLOXACIN 400mg IV 400 MG/200 ML BAG IV ONE (16:11)
--- NOTE | 2020-11-20 18:15 | ER ---
Nurse's Notes [facility] Name: Britney Barroso Age: 34 yrs Sex: Female : 1985 Arrival Date: 11/20/2020 Time: 11:59 Bed 3 Private MD: Diagnosis: Vertigo Presentation: 11/20 12:33 Chief complaint: Patient states: Dizzness, headache, nausea starting this am. kg Coronavirus screen: Client denies travel out of the [place] in the last 14 days. At this time, unable to obtain information related to travel outside the [place] Ebola Screen: Patient negative for fever greater than or equal to 101.5 degrees Fahrenheit, and additional compatible Ebola Virus Disease symptoms Patient denies exposure to infectious person. Patient denies travel to an Ebola-affected area in the 21 days before illness onset. Initial Sepsis Screen: Does the patient meet any 2 criteria? No. Patient's initial sepsis screen is negative. Does the patient have a suspected source of infection? No. Patient's initial sepsis screen is negative. Risk Assessment: Do you want to hurt yourself or someone else? Patient reports no desire to harm self or others. Onset of symptoms was November 20, 2020 at 06:45. 12:33 Method Of Arrival: Wheelchair kg 12:33 Acuity: CHRIS 3 kg Triage Assessment: 12:34 Headache History: The patient has had previous headaches and this one is similar to kg previous episodes. General: Appears uncomfortable, Behavior is calm, cooperative, appropriate for age, quiet. Pain: Pain currently is 8 out of 10 on a pain scale. at worst was 10 out of 10 on a pain scale. level that patient reports is acceptable is 3 out of 10 on a pain scale. Quality of pain is described as throbbing, Pain began 06:45 am Also complains of nausea, photophobia, inability to work, inability to perform activities of daily living. Neuro: Reports dizziness, since 06 0645 headache photophobia. 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 - Social history:: Smoking status: Patient denies any tobacco usage or history of. - Family history:: not pertinent. - Hospitalizations: : No recent hospitalization is reported. Screenin:38 Abuse screen: Denies threats or abuse. Denies injuries from another. Nutritional kg screening: No deficits noted. Tuberculosis screening: No symptoms or risk factors identified. Fall Risk None identified. No fall in past 12 months (0 pts). No secondary diagnosis (0 pts). IV access (20 points). Ambulatory Aid- None/Bed Rest/Nurse Assist (0 pts). Gait- Normal/Bed Rest/Wheelchair (0 pts) Mental Status- Oriented to own ability (0 pts). Total Sexton Fall Scale indicates No Risk (0-24 pts). Assessment: 15:01 General: Appears in no apparent distress. comfortable, Behavior is calm, cooperative, ph appropriate for age. Pain: Denies pain. Neuro: Level of Consciousness is awake, alert, obeys commands, Oriented to person, place, time, situation, Prop Sawyer are equal bilaterally Moves all extremities. Speech is normal, Facial symmetry appears normal, Reports dizziness, Denies weakness blurred vision numbness. Cardiovascular: Capillary refill < 3 seconds in bilateral fingers Patient's skin is warm and dry. Respiratory: Airway is patent Respiratory effort is even, unlabored. GI: Reports nausea, Patient currently denies abdominal pain. Derm: Skin is intact, is healthy with good turgor, Skin is pink, warm \\T\\ dry. Musculoskeletal: Circulation, motion, and sensation intact. Range of motion: intact in all extremities. 16:56 Reassessment: Patient appears in no apparent distress at this time. Patient and/or ph family updated on plan of care and expected duration. Pain level reassessed. Patient is alert, oriented x 3, equal unlabored respirations, skin warm/dry/pink. Pt resting comfortably, d/c pending completion of IV antibiotics. Vital Signs: 12:33 BP 117 / 86; Pulse 75; Resp 20; Temp 97.3(TE); Pulse Ox 100% ; Weight 86.18 kg; Height kg 5 ft. 3 in. (160.02 cm); Pain 8/10; 15:06 BP 112 / 77; Pulse 71; Resp 18; Pulse Ox 98% on R/A; ph 16:18 BP 119 / 91; Pulse 78; Resp 18; Pulse Ox 100% ; sv 17:30 BP 112 / 78; Pulse 72; Resp 18; Temp 97.2; Pulse Ox 100% on R/A; ph 12:33 Body Mass Index 33.66 (86.18 kg, 160.02 cm) kg [place] Coma Score: 16:41 Eye Response: spontaneous(4). Verbal Response: oriented(5). Motor Response: obeys rn commands(6). Total: 15. ED Course: 11:59 Patient arrived in ED. mr 12:34 Triage completed. kg 12:34 Arm band placed on right wrist. kg 12:38 Patient has correct armband on for positive identification. kg 13:18 CT Head Brain wo Cont In Process Unspecified. EDMS 14:04 David Castillo MD is Attending Physician. rn 14:40 Georgie Reilly RN is Primary Nurse. ph 14:43 EKG done, by ED staff, reviewed by David Castillo MD. Inserted saline lock: 20 gauge in mt right antecubital area, using aseptic technique. Blood collected. 16:36 COVID-19 : Document "Date of Symptom Onset" if Symptomatic. Sent. sv 16:42 Gómez España MD is Referral Physician. rn 17:26 No provider procedures requiring assistance completed. IV discontinued, intact, ph bleeding controlled, No redness/swelling at site. Pressure dressing applied. Administered Medications: 14:50 Drug: Valium (diazepam) 5 mg Route: PO; ph 17:29 Follow up: Response: No adverse reaction ph 14:51 Drug: NS 0.9% 1000 ml Route: IV; Rate: 1000 ml; Site: right antecubital; ph 17:29 Follow up: Response: No adverse reaction; IV Status: Completed infusion; IV Intake: ph 1000ml 14:51 Drug: Zofran (Ondansetron) 4 mg Route: IVP; Site: right antecubital; ph 17:29 Follow up: Response: No adverse reaction ph 14:51 Drug: Meclizine 50 mg Route: PO; ph 17:28 Follow up: Response: No adverse reaction ph 16:15 Drug: Cipro (ciprofloxacin) 400 mg Volume: 200 ml; Route: IVPB; Infused Over: 60 mins; ph Site: right antecubital; 17:28 Follow up: Response: No adverse reaction; IV Status: Completed infusion ph Intake: 17:29 IV: 1000ml; Total: 1000ml. ph Outcome: 16:42 Discharge ordered by . rn 17:27 Discharged to home ambulatory. ph 17:27 Condition: good 17:27 Discharge instructions given to patient, Instructed on discharge instructions, follow up and referral plans. medication usage, Demonstrated understanding of instructions, follow-up care, medications, Prescriptions given X 2. 17:30 Patient left the ED. ph Signatures: Dispatcher [employer] EDMS Isi Abbott RN SHARIFA Sheila Gorman Roman, MD MD rn Hall, Patricia, RN RN Cristhian, DoloresLiss Sanford mt, RN RN kg
--- NOTE | 2020-11-20 18:15 | EDPHYS ---
Physician Documentation [facility] Name: Britney Barroso Age: 34 yrs Sex: Female : 1985 Arrival Date: 11/20/2020 Time: 11:59 Bed 3 Private MD: ED Physician David Castillo HPI: 11/20 14:28 This 34 yrs old Female presents to ER via Wheelchair with complaints of rn Headache, Dizziness, Nausea. 14:28 The patient complains of pain to the top of head and forehead. The patient describes rn the headache as aching. Onset: The symptoms/episode began/occurred this morning. Associated signs and symptoms: Pertinent positives: dizziness, nausea, Vertigo Pertinent negatives: altered mental status, fever, neck stiffness, rash, vision loss. Severity of symptoms: At its worst the pain was moderate, in the emergency department the pain is unchanged. The symptoms are alleviated by nothing. the symptoms are aggravated by lights, movement, noise. The patient has experienced a previous episode. The patient has not recently seen a physician. Patient reports woke up this morning feeling dizzy, nausea, worse with turning head and opening eyes. Later in day began with headache. States this is happened once before and told her potassium was low. Denies fever, neck pain, neck stiffness, chest pain, shortness of breath, abdominal pain. Patient denies any head injury or trauma. No known history of intracranial mass/stroke. No focal neurological complaint.. 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 - Social history:: Smoking status: Patient denies any tobacco usage or history of. - Family history:: not pertinent. - Hospitalizations: : No recent hospitalization is reported. ROS: 14:28 Constitutional: Negative for fever, chills, and weight loss, Eyes: Negative for injury, rn pain, redness, and discharge, ENT: Negative for injury, pain, and discharge, Neck: Negative for injury, pain, and swelling, Cardiovascular: Negative for chest pain, palpitations, and edema, Respiratory: Negative for shortness of breath, cough, wheezing, and pleuritic chest pain, Abdomen/GI: Negative for abdominal pain, vomiting, diarrhea, and constipation, Back: Negative for injury and pain, : Negative for injury, bleeding, discharge, and swelling, MS/Extremity: Negative for injury and deformity, Skin: Negative for injury, rash, and discoloration, Neuro: Negative for numbness, tingling, and seizure Exam: 14:28 Constitutional: This is a well developed, well nourished patient who is awake, alert, rn and in no acute distress. Head/Face: Normocephalic, atraumatic. Eyes: Pupils equal round and reactive to light, extra-ocular motions intact. ENT: Mucous membranes moist. Cardiovascular: Regular rate and rhythm. No pulse deficits. Respiratory: No increased work of breathing, no retractions or nasal flaring. Abdomen/GI: Soft, non-tender Skin: Warm, dry with normal turgor. Normal color with no rashes, no lesions, and no evidence of cellulitis. MS/ Extremity: Pulses equal, no cyanosis. Neurovascular intact. Full, normal range of motion. Equal circumference. Neuro: Awake and alert, GCS 15, oriented to person, place, time, and situation. Cranial nerves II-XII grossly intact. Motor strength 5/5 in all extremities. Sensory grossly intact. Vital Signs: 12:33 BP 117 / 86; Pulse 75; Resp 20; Temp 97.3(TE); Pulse Ox 100% ; Weight 86.18 kg; Height kg 5 ft. 3 in. (160.02 cm); Pain 8/10; 15:06 BP 112 / 77; Pulse 71; Resp 18; Pulse Ox 98% on R/A; ph 16:18 BP 119 / 91; Pulse 78; Resp 18; Pulse Ox 100% ; sv 17:30 BP 112 / 78; Pulse 72; Resp 18; Temp 97.2; Pulse Ox 100% on R/A; ph 12:33 Body Mass Index 33.66 (86.18 kg, 160.02 cm) kg [place] Coma Score: 16:41 Eye Response: spontaneous(4). Verbal Response: oriented(5). Motor Response: obeys rn commands(6). Total: 15. MDM: 14:04 Patient medically screened. rn 16:41 Differential diagnosis: migraine, tension headache, trigeminal neuralgia, vasomotor rn headache, Vertigo, UTI, dehydration. Data reviewed: vital signs, nurses notes, lab test result(s), EKG, radiologic studies, CT scan, and as a result, I will discharge patient. Counseling: I had a detailed discussion with the patient and/or guardian regarding: the historical points, exam findings, and any diagnostic results supporting the discharge/admit diagnosis, lab results, radiology results, the need for outpatient follow up, to return to the emergency department if symptoms worsen or persist or if there are any questions or concerns that arise at home. Response to treatment: the patient's symptoms have markedly improved after treatment, and as a result, I will discharge patient. Special discussion: I discussed with the patient/guardian in detail that at this point there is no indication for admission to the hospital. It is understood, however, that if the symptoms persist or worsen the patient needs to return immediately for re-evaluation. ED course: CT head without acute findings, stable vital signs, positive UTI, patient feels much better able to open eyes and move head. Will DC home as vertigo with meclizine and return precautions with neurology follow-up. 17:14 Differential diagnosis: cluster headache, hypertensive headache, intracerebral rn hemorrhage, neoplasm, subdural hematoma. 11/20 12:41 Order name: COVID-19 : Document "Date of Symptom Onset" if Symptomatic. ss 11/20 12:48 Order name: Urine Dipstick-Ancillary; Complete Time: 14:05 EDCA 11/20 12:49 Order name: Urine --Ancillary (enter results) bd 11/20 12:49 Order name: Urine --Ancillary; Complete Time: 14:05 EDMS 11/20 13:59 Order name: SARS-COV-2 RT PCR; Complete Time: 14:05 EDCA 11/20 13:08 Order name: CT Head Brain wo Cont; Complete Time: 14:05 kg 11/20 14:17 Order name: CBC with Diff; Complete Time: 15:58 rn 11/20 14:17 Order name: Basic Metabolic Panel; Complete Time: 15:25 rn 11/20 14:17 Order name: IV Start; Complete Time: 14:40 rn 11/20 14:18 Order name: EKG; Complete Time: 14:19 rn 11/20 14:18 Order name: EKG - Nurse/Tech; Complete Time: 14:43 rn Administered Medications: 14:50 Drug: Valium (diazepam) 5 mg Route: PO; ph 17:29 Follow up: Response: No adverse reaction ph 14:51 Drug: NS 0.9% 1000 ml Route: IV; Rate: 1000 ml; Site: right antecubital; ph 17:29 Follow up: Response: No adverse reaction; IV Status: Completed infusion; IV Intake: ph 1000ml 14:51 Drug: Zofran (Ondansetron) 4 mg Route: IVP; Site: right antecubital; ph 17:29 Follow up: Response: No adverse reaction ph 14:51 Drug: Meclizine 50 mg Route: PO; ph 17:28 Follow up: Response: No adverse reaction ph 16:15 Drug: Cipro (ciprofloxacin) 400 mg Volume: 200 ml; Route: IVPB; Infused Over: 60 mins; ph Site: right antecubital; 17:28 Follow up: Response: No adverse reaction; IV Status: Completed infusion ph Disposition Summary: 11/20/20 16:42 Discharge Ordered Location: Home rn Problem: new rn Symptoms: have improved rn Condition: Stable rn Diagnosis - Vertigo rn Followup: rn - With: Gómez España MD - When: As needed - Reason: Recheck today's complaints, Re-evaluation by your physician Discharge Instructions: - Discharge Summary Sheet rn - Vertigo rn Forms: - Medication Reconciliation Form rn - Thank You Letter rn - Antibiotic color checker roving or yarn - Prescription Opioid Use rn Prescriptions: - Meclizine 25 mg Oral Tablet - take 1 tablet by ORAL route every 8 hours As needed; 30 tablet; Refills: 0, rn Product Selection Permitted - Cipro 500 mg Oral Tablet - take 1 tablet by ORAL route every 12 hours for 7 days; 14 tablet; Refills: 0, rn Product Selection Permitted Signatures: Dispatcher [employer] EDMS David Castillo MD MD rn Hall, Patricia, RN RN ph Graham, Kristen, RN RN kg Corrections: (The following items were deleted from the chart) 13:03 12:41 CORONAVIRUS ordered. EDCA EDMS
[2020-11-22 01:26] VITALS: O2SAT 100
[2020-11-22 01:30] VITALS: BP 112/78; TEMP 97.2
--- NOTE | 2020-11-22 07:34 | EKG ---
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
== END 2020-11-20 17:30 | disposition home or self-care (01) ==
LOC: ER 11:57
DX: R42 Dizziness and giddiness (principal); R51.9 Headache, unspecified; Z20.822 Contact with and (suspected) exposure to COVID-19; J45.909 Unspecified asthma, uncomplicated
CPT/HCPCS: 93005; 85025; 80048; 36415; 81025; 81003; 70450; U0003; J7030; J2405; J0744

== ENCOUNTER 2021-10-07 18:26 | Emergency (ER) | payer OTHER ==
--- OUTSIDE RECORDS SUMMARY | 2021-10-07 18:32 | XMS REPORT | Continuity of Care Document ---
:1985 Author Organization [facility] t Address [address] [place] [address] Care Team Providers Name Role Phone Johann Motley DO Attending Clinician Doctor Unassigned, Name Attending Clinician Unavailable Cecilia REDDY Attending Clinician CECILIA Attending Clinician Unavailable Pea-Rmchp Nurse Vst, Nrpt Pills Class Attending Clinician U navailable Payers Payer Name Policy Type Policy Number Effective Date Expiration Date S ource Problems Condition Condition Condition Status Onset Resolution Last Treating Co mments Source Name Details Category Date Date Treatment Clinician Date No known No known Disease Unive rs active active ity of problems problems [facility] Allergies, Adverse Reactions, Alerts Allergy Allergy Status Severity Reaction(s) Onset Inactive Treating Comm ents Source Name Type Date Date Clinician Benadryl Propensi Active Palpitations 2020-0 Increas ed Univers Steri-Do ty to 3-10 HR >200 ity of se adverse 00:00: per [place] reaction 00 patient Medical s with IV Branch benadryl Iodine Propensi Active Anaphylaxis 2020-0 Uni vers ty to 3-10 ity of adverse 00:00: [place] reaction 00 Medical s Branch BENADRYL DRUG Active Palpitations 2020-0 Un simran STERI-DO 3-10 ity of SE 00:00: [place] 00 Medical Branch IODINE DRUG Active Anaphylaxis 2020-0 Unive rs INGREDI 3-10 ity of 00:00: [place] [facility] NO KNOWN Drug Active Univers ALLERGIE Class ity of S [facility] Social History Social Habit Start Date Stop Date Quantity Comments Source History SDOH University o f Alcohol Binge [place] [facility] History SDOH University o f Alcohol Std [place] [facility] Alcohol intake 2019-07-05 2019-07-05 Lifetime University of 00:00:00 00:00:00 non-drinker [place] [facility] (finding) [facility] History SDOH 2019-07-05 2019-07-05 1 University o f Alcohol Frequency 00:00:00 00:00:00 [place] [facility] Tobacco use and 2019-07-05 2019-07-05 Never used Universit y of exposure 00:00:00 00:00:00 [facility] Sex Ass[birth year] At [birth year] Universit y of 00:00:00 00:00:00 [facility] Smoking Status Start Date Stop Date Source Unknown if ever smoked [facility] Never smoker [facility] Medications Ordered Filled Start Stop Current Ordering Indication Dosage Frequency Signature Comments Components Source Medication Medication Date Date Medication? Clinician (SIG) Name Name No known No Univers medications [facility] No known No Univers medications [facility] No known No Univers medications [facility] No known No Univers medications [facility] Immunizations Ordered Filled Immunization Date Status Comments Sourc e Immunization Name Name [facility] 2017-06-25 Completed University 00:00:00 [facility] Td 2017-06-25 Completed University 00:00:00 [facility] Tdap 2017-06-25 Completed [facility] 00:00:00 [facility] TD 2017-06-25 Completed [facility] 00:00:00 [facility] Vital Signs Vital Name Observation Time Observation Value Comments Source Systolic blood 2019-07-05 19:38:00 121 mm[Hg] Univer sity of pressure [facility] Diastolic blood 2019-07-05 19:38:00 75 mm[Hg] Unive rsity of pressure [facility] Heart rate 2019-07-05 19:38:00 88 /min [facility] Body temperature 2019-07-05 19:38:00 36.94 Jeni [facility] Res[facility] rate 2019-07-05 19:38:00 18 /min [facility] Body height 2019-07-05 19:38:00 161.3 cm [facility] Body weight 2019-07-05 19:38:00 87.544 kg Universi ty of [place] [facility] BMI 2019-07-05 19:38:00 33.65 kg/m2 [facility]i ty of [place] [facility] Systolic blood 2019-07-05 19:38:00 121 mm[Hg] Univer sity of pressure [facility] Diastolic blood 2019-07-05 19:38:00 75 mm[Hg] Unive rsity of pressure [facility] Heart rate 2019-07-05 19:38:00 88 /min Universi ty of [facility] Body temperature 2019-07-05 19:38:00 36.94 Jeni Univ ersity of [facility] Respiratory rate 2019-07-05 19:38:00 18 /min Univ ersity of [facility] Body height 2019-07-05 19:38:00 161.3 cm [facility] [place] [facility] Body weight 2019-07-05 19:38:00 87.544 kg [facility]i [facility] [place] [facility] BMI 2019-07-05 19:38:00 33.65 kg/m2 [facility]i ty of [place] [facility] Diastolic blood 2019-06-21 17:03:00 70 mm[Hg] Unive rsity of pressure [facility] Heart rate 2019-06-21 17:03:00 80 /min Universi ty of [facility] Body temperature 2019-06-21 17:03:00 36.89 Jeni Univ ersity of [place] [facility] Respiratory rate 2019-06-21 17:03:00 18 /min Univ ersity of [facility] Body height 2019-06-21 17:03:00 161.3 cm Universi ty of [place] [facility] Body weight 2019-06-21 17:03:00 88.225 kg [facility]i ty of [place] [facility] BMI 2019-06-21 17:03:00 33.91 kg/m2 Universi ty of [place] [facility] Systolic blood 2019-06-21 17:03:00 127 mm[Hg] Univer sity of [facility] Procedures Procedure Date / Time Performed Performing Clinician Sour e POCT TEST 2019-07-05 19:45:00 Bebeto Marroquin [facility] POCT TEST 2019-06-21 17:05:00 Bebeto Marroquin [facility] ASSIGNMENT OF BENEFITS 2019-06-21 16:08:13 Doctor Unassigned, No [facility] Name [facility] Branch Encounters Start End Encounter Admission Attending Care Care Encounter Source Date/Time Date/Time Type Type Clinicians Facility Department ID 2020-07-17 2020-07-17 Patient SHEY Motley [id number] 00:00:00 00:00:00 Outreach [place] PRIMARY [id number] Johann CARE [id number] PAVILLION [id number] 2020-07-17 2020-07-17 Patient SHEY Motley [id number] Univers 00:00:00 00:00:00 Outreach [place] PRIMARY [id number] i ty of formerly [facility] [id number] [place] [id number] Md dical [address] [place] [address] 2019-07-08 2019-07-08 Patient Doctor WAJACOBO [id number] 00:00:00 00:00:00 Secure Msg Unassigned, MANAGER SHOP [id number] [place] [facility] [id number] MATERNAL [id number] & CHILD [address] [place] [address] 2019-07-08 2019-07-08 Patient Doctor WAJACOBO [id number] Univers 00:00:00 00:00:00 Secure Msg Unassigned, MANAGER SHOP [id number] ity of [place] [facility] [id number] Juan as MATERNAL [id number] [facility] & CHILD [address] [place] [address] 2019-07-05 2019-07-05 Office Nasra [facility] [id number] Univers 14:08:45 16:01:30 Visit Bebeto MANAGER SHOP [id number] i ty of REGIONAL [id number] Juan as MATERNAL [id number] [facility] CHILD [address] [place] [address] 2019-07-05 2019-07-05 Office Nasra [facility] [id number] 14:08:45 16:01:30 Visit Bebeto MANAGER SHOP [id number] REGIONAL [id number] MATERNAL [id number] & CHILD [address] [place] [address] 2019-07-05 2019-07-05 Outpatient R CECILIA [facility] [id number] Univers 14:15:00 14:15:00 BEBETO ity o edna [facility] 2019-07-05 2019-07-05 Outpatient R CECILIA [facility] [id number] Univers 14:15:00 14:15:00 BEBETO ity o [facility] 2019-06-21 2019-06-21 Nurse Pea-Rmchp Nurse Vst, Fp Nrpt Pills Class [facility] [id number] Univers 10:34:52 11:22:36 Visit Bebeto Marroquin MANAGER SHOP [id number] ity of [place] [id number] Juan as MATERNAL [id number] Med ical & CHILD [address] [place] [address] 2019-06-21 2019-06-21 [facility]patient [facility] [id number] Univers 10:00:00 10:00:00 BEBETO itraghu o [facility] 2019-06-21 2019-06-21 Outpatient R [facility] [id number] Univers 09:45:00 09:45:00 [id number] ity of [facility] 2019-06-21 2019-06-21 Outpatient [facility]avan [facility] [id number] Univers 09:45:00 09:45:00 BEBETO itraghu o [facility] 2019-06-21 2019-06-21 Orders Doctor TOBY [id number] Univers 00:00:00 00:00:00 Only Unassigned, PIPER [id number] [facility] [id number] Juan as [id number] [address] Results Test Description Test Time Test Comments Results Result Comments Source POCT TEST 2019-07-05 19:45:00 Test Item Value Reference Range Interpretation Comme nts POCT PREG (test code = 1605) Negative On board controls acceptable with C Line (test code = 3574) Yes POCT PREG LOT # (test code = 3575) POCT PREG TEST DATE (test code = 3576[id number] 19:45:00 Test Item Value Reference Range Interpretation Comments POCT PREG (test code = 1605) Negative On board controls acceptable with C Yes Line (test code = 3574) POCT PREG LOT # (test code = 3575) POCT PREG TEST DATE (test code = 3576) [id number] 17:05:00 Test Item Value Reference Range Interpretation Comments POCT PREG (test code = 1605) Negative On board controls acceptable with C Yes Line (test code = 3574) POCT PREG LOT # (test code = 3575) POCT PREG TEST DATE (test code = 3576) [facility]
--- NOTE | 2021-10-07 20:12 | RAD REPORT ---
EXAM DESCRIPTION: RAD - Chest Pa And Lat (2 Views) - 10/07/2021 8:05 pm CLINICAL HISTORY: CHEST PAIN Chest pain. COMPARISON: Chest Pa And Lat (2 Views) dated 03/17/2019 FINDINGS: The lungs are clear. The heart is normal in size. No displaced fractures. IMPRESSION: No acute or concerning finding suspected.
[2021-10-07] MEDS ORDERED: KETOROLAC 30 MG/ML INJ ONE (20:51)
[2021-10-07] MEDS ORDERED: ACETAMINOPHEN 500 MG TAB ONE (20:52)
[2021-10-07 20:59] LABS: Hematocrit 31.6 % (36.0-45.0); Lymphocytes % 24.3 % (15.3-44.8); MPV 8.3 fL (7.6-11.3); RBC Red Blood Cell Count 3.91 M/uL (3.86-4.86)
[2021-10-07 21:11] LABS: Urine Blood Trace-intact (Negative); Urine Glucose Negative (Negative); Urine Protein Negative (Negative)
[2021-10-07 21:11] LABS: Protime INR 0.96
[2021-10-07 21:12] LABS: ALT/SGPT 34 U/L (12-78); AST/SGOT 19 U/L (15-37); Albumin 3.6 g/dL (3.4-5.0); Alkaline Phosphatase 95 U/L (45-117); BUN Blood Urea Nitrogen 4 mg/dL (7-18); Bicarbonate 26 mmol/L (21-32); Bilirubin Total 0.2 mg/dL (0.2-1.0); Glomerular Filtration Rate 117 ml/min (=/>90); Glucose Level 103 mg/dL (74-106); Magnesium 2.1 mg/dL (1.8-2.4); Potassium 4.1 mmol/L (3.5-5.1); Protein, Total 7.3 g/dL (6.4-8.2); Sodium Level 139 mmol/L (136-145)
[2021-10-07 22:16] LABS: Bilirubin Direct < 0.1 mg/dL (0-0.2)
--- NOTE | 2021-10-07 22:34 | ER ---
Nurse's Notes [facility] Name: Britney Barroso Age: 35 yrs Sex: Female : 1985 Arrival Date: 10/07/2021 Time: 18:28 Bed 9 Private MD: Diagnosis: Chest pain, unspecified Presentation: 10/07 19:35 Chief complaint: Patient states: she thinks she either is having an asthma exacerbation bb or a lung infection she has pressure on her chest and sharp pains. Coronavirus screen: cough unrelated to allergies, difficulty breathing. Ebola Screen: No symptoms or risks identified at this time. Initial Sepsis Screen: Does the patient meet any 2 criteria? No. Patient's initial sepsis screen is negative. Does the patient have a suspected source of infection? No. Patient's initial sepsis screen is negative. Risk Assessment: Do you want to hurt yourself or someone else? Patient reports no desire to harm self or others. Onset of symptoms was October 06, 2021. 19:35 Method Of Arrival: Ambulatory bb 19:35 Acuity: CHRIS 3 bb Triage Assessment: 19:38 General: Appears in no apparent distress. uncomfortable, Behavior is calm, cooperative. bb Pain: Complains of pain in chest Pain currently is 4 out of 10 on a pain scale. Neuro: Level of Consciousness is awake, alert, obeys commands, Oriented to person, place, time, situation. Cardiovascular: Capillary refill < 3 seconds Patient's skin is warm and dry. Respiratory: Respiratory effort is even, unlabored, Respiratory pattern is regular. GI: No signs and/or symptoms were reported involving the gastrointestinal system. Derm: Skin is pink, warm \T\ dry. Musculoskeletal: Circulation, motion, and sensation intact. 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 - Social history:: Smoking status: Patient denies any tobacco usage or history of. Screenin:00 Abuse screen: Denies threats or abuse. Nutritional screening: No deficits noted. vc1 Tuberculosis screening: No symptoms or risk factors identified. Fall Risk None identified. Assessment: 21:00 Reassessment: See triage assessment. vc1 22:00 Reassessment: Patient and/or family updated on plan of care and expected duration. Pain vc1 level reassessed. Patient is alert, oriented x 3, equal unlabored respirations, skin warm/dry/pink. Patient denies pain at this time. Patient states feeling better. Patient states symptoms have improved. Vital Signs: 19:35 BP 119 / 82; Pulse 82; Resp 18 S; Temp 97.7(TE); Pulse Ox 98% ; Weight 86.18 kg (R); bb Height 5 ft. 3 in. (160.02 cm); Pain 4/10; 19:35 Body Mass Index 33.66 (86.18 kg, 160.02 cm) bb ED Course: 18:28 Patient arrived in ED. mr 19:38 Triage completed. bb 19:38 Arm band placed on Patient placed in waiting room, Patient notified of wait time. pt bb seen by ED provider in triage with diagnostics ordered. 19:40 Lamberto Levy PA is PHCP. cp 19:40 Lamberto Parekh MD is Attending Physician. cp 20:06 XRAY Chest Pa And Lat (2 Views) In Process Unspecified. EDMS 20:30 Patient has correct armband on for positive identification. Client placed on continuous vc1 cardiac and pulse oximetry monitoring. NIBP monitoring applied. 20:30 Inserted saline lock: 20 gauge in right antecubital area, using aseptic technique. vc1 Blood collected. 21:14 EKG done, by ED staff. wm 22:32 Tessie Ruffin MD is Hospitalizing Provider. cp 22:58 No provider procedures requiring assistance completed. IV discontinued, intact, vc1 bleeding controlled, No redness/swelling at site. Pressure dressing applied. Patient maintains SpO2 saturation greater than 95% on room air. 22:59 Lexie Thakur RN is Primary Nurse. vc1 Administered Medications: 20:48 Drug: Tylenol 1000 mg Route: PO; vc1 23:00 Follow up: Response: No adverse reaction; Pain is decreased vc1 21:26 Drug: Ketorolac 15 mg Route: IVP; Site: right antecubital; vc1 23:00 Follow up: Response: No adverse reaction; Pain is decreased vc1 22:58 Drug: Lovenox (enoxaparin) 1 mg/kg Route: Sub-Q; Site: abdomen; vc1 22:58 Follow up: Response: No adverse reaction; Medication administered at discharge. vc1 23:00 Follow up: Response: No adverse reaction vc1 Medication: 22:58 VIS not applicable for this client. vc1 Outcome: 22:33 Decision to Hospitalize by Provider. cp 22:40 Discharge ordered by MD. cp 22:40 Discharged to home ambulatory. vc1 22:40 Condition: improved 22:40 Discharge instructions given to patient, Instructed on discharge instructions, follow up and referral plans. medication usage, Demonstrated understanding of instructions, follow-up care, medications, Prescriptions given X 2. 22:59 Patient left the ED. vc1 Signatures: Dispatcher [employer] Sheila Sam Brenda, RN RN Lamberto Leonard PA PA cp Marsh, Wendy wm Calcote, Vanessa, RN RN vc1
--- NOTE | 2021-10-07 22:34 | EDPHYS ---
Physician Documentation [facility] Name: Britney Barroso Age: 35 yrs Sex: Female : 1985 Arrival Date: 10/07/2021 Time: 18:28 Bed 9 Private MD: ED Physician Lamberto Parekh HPI: 10/07 19:30 This 35 yrs old Female presents to ER via Ambulatory with complaints of Chest Pressure. cp 19:30 The patient or guardian reports chest pain that is located primarily in the diaphragm. cp 19:30 The pain radiates to back. cp 19:30 Associated signs and symptoms: Pertinent positives: shortness of breath, Pertinent cp negatives: abdominal pain, diaphoresis, lower extremity pain, lower extremity swelling, palpitations, vomiting. The chest pain is described as a pressure, sharp. Duration: The patient or guardian reports a single episode, that is still ongoing, and worsening. Modifying factors: the symptoms are aggravated by deep breath. Severity of pain: in the emergency department the pain is unchanged despite home interventions. BREAKDOWN PERSON: 19:38 LMP 09/25/2021 bb Historical: - Allergies: 19:38 Benadryl; bb 19:38 Iodine; bb - Home Meds: 19:38 none [Active]; bb - PMHx: 19:38 Anemia; Asthma; Hypokalemia; bb - PSHx: 19:38 section; bb - Immunization history:: Client reports having NOT received the Covid vaccine. - Social history:: Smoking status: Patient denies any tobacco usage or history of. ROS: 19:35 Constitutional: Negative for body aches, chills, fever, poor PO intake. cp 19:35 Cardiovascular: Positive for chest pain, of the lower chest bilaterally, Negative for cp edema, palpitations. 19:35 Respiratory: Positive for shortness of breath, Negative for cough, wheezing. Exam: 19:40 Constitutional: The patient appears in no acute distress, alert, awake, cp non-diaphoretic, non-toxic, well developed, well nourished, uncomfortable. 19:40 Head/Face: Normocephalic, atraumatic. cp 19:40 Eyes: Periorbital structures: appear normal, Conjunctiva: normal, no exudate, no injection, Sclera: no appreciated abnormality, Lids and lashes: appear normal, bilaterally. 19:40 ENT: External ear(s): are unremarkable, Nose: is normal, Mouth: Lips: moist, Oral mucosa: pink and intact, moist, Posterior pharynx: Airway: no evidence of obstruction, patent. 19:40 Neck: ROM/movement: is normal, is supple, without pain, no range of motions limitations, no nuchal rigidity. 19:40 Chest/axilla: Inspection: normal. 19:40 Cardiovascular: Rate: normal, Rhythm: regular, Heart sounds: murmur, not appreciated, Edema: is not appreciated, JVD: is not appreciated. 19:40 Respiratory: the patient does not display signs of respiratory distress, Respirations: normal, no use of accessory muscles, no retractions, labored breathing, is not present, Breath sounds: are clear throughout, no decreased breath sounds, no stridor, no wheezing. 19:40 Abdomen/GI: Inspection: abdomen appears normal, Palpation: abdomen is soft and non-tender, in all quadrants. 19:40 Back: pain, that is moderate, of the left subscapular area and right subscapular area, ROM is painful, with all movement. 19:40 Skin: cellulitis, is not appreciated, no rash present. 19:40 Neuro: Orientation: to person, place \\T\\ time. Mentation: is normal, Motor: moves all fours, strength is normal, Sensation: no obvious gross deficits. 21:05 ECG was reviewed by the Attending Physician. cp Vital Signs: 19:35 BP 119 / 82; Pulse 82; Resp 18 S; Temp 97.7(TE); Pulse Ox 98% ; Weight 86.18 kg (R); bb Height 5 ft. 3 in. (160.02 cm); Pain 4/10; 19:35 Body Mass Index 33.66 (86.18 kg, 160.02 cm) bb MDM: 20:00 Differential diagnosis: acute pericarditis, chest wall pain, cholecystitis, cp Cholelithiasis costochondritis, pericarditis, pleurisy, pneumonia, pneumothorax, pulmonary embolus. 20:13 Patient medically screened. cp 22:37 Data reviewed: vital signs, nurses notes, lab test result(s), EKG, radiologic studies, cp plain films. Test interpretation: by ED physician or midlevel provider: ECG, plain radiologic studies. Counseling: I had a detailed discussion with the patient and/or guardian regarding: the historical points, exam findings, and any diagnostic results supporting the discharge/admit diagnosis, lab results, radiology results. ED course: Discussed results of labs, EKG and chest xray. Recommend admission for observation and VQ scan in the morning to r/o PE due to elevated d-dimer. Patient refuses and requests to be discharged to home with the understanding that I can't r/o pulmonary embolism and that it could result in . 10/07 19:42 Order name: Basic Metabolic Panel; Complete Time: 22:18 10/07 22:18 Interpretation: Normal except: CL 108; BUN 4. 10/07 19:42 Order name: CBC with Diff; Complete Time: 21:02 10/07 21:25 Interpretation: Normal except: HGB 10.4; HCT 31.6; MCV 80.8; MCH 26.5; RDW 16.1; cp EOSINOPHIL % 10.5; EOSA 0.8. 10/07 19:42 Order name: D-Dimer; Complete Time: 21:24 10/07 21:25 Interpretation: Abnormal: D-DIMER 661. 10/07 19:42 Order name: LFT's; Complete Time: 22:18 10/07 22:18 Interpretation: Normal except: GLOB 3.7; A/G 1.0. 10/07 19:42 Order name: Magnesium; Complete Time: 22:18 10/07 22:19 Interpretation: Reviewed. 10/07 19:42 Order name: PT-INR; Complete Time: 21:24 10/07 19:42 Order name: Troponin HS; Complete Time: 22:18 10/07 22:18 Interpretation: Troponin HS 3.0; Reviewed. 10/07 19:42 Order name: COVID-19 SARS RT PCR (Document "Date of Onset" if Symptomatic); Complete cp Time: 22:01 10/07 22:01 Interpretation: Reviewed. 10/07 19:42 Order name: Influenza Screen (a \\T\\ B); Complete Time: 21:24 10/07 22:01 Interpretation: Reviewed. 10/07 19:42 Order name: XRAY Chest Pa And Lat (2 Views); Complete Time: 21:02 10/07 21:25 Interpretation: Report reviewed. 10/07 21:11 Order name: Urine Dipstick-Ancillary; Complete Time: 21:24 EDMS 10/07 21:25 Interpretation: Normal except: UBLD Trace-intact; UESTR Trace. cp 10/07 21:13 Order name: Urine --Ancillary (enter results); Complete Time: 22:51 wm 10/07 22:51 Interpretation: Reviewed. 10/07 19:20 Order name: Urine Dipstick-Ancillary (obtain specimen) [facility] 10/07 19:20 Order name: Urine Test (obtain specimen) [facility] 10/07 19:42 Order name: EKG; Complete Time: 19:43 cp 10/07 19:42 Order name: EKG - Nurse/Tech; Complete Time: 21:26 cp 10/07 19:42 Order name: IV Saline Lock; Complete Time: 20:44 cp 10/07 19:42 Order name: Labs collected and sent; Complete Time: 20:44 10/07 19:42 Order name: O2 Per Protocol; Complete Time: 20:44 10/07 19:42 Order name: O2 Sat Monitoring; Complete Time: 20:44 cp EC:05 Rate is 69 beats/min. Rhythm is regular. NM interval is normal. QRS interval is normal. cp QT interval is normal. T waves are Inverted in leads aVL, aVR. Interpreted by me. Reviewed by me. Administered Medications: 20:48 Drug: Tylenol 1000 mg Route: PO; vc1 23:00 Follow up: Response: No adverse reaction; Pain is decreased vc1 21:26 Drug: Ketorolac 15 mg Route: IVP; Site: right antecubital; vc1 23:00 Follow up: Response: No adverse reaction; Pain is decreased vc1 22:58 Drug: Lovenox (enoxaparin) 1 mg/kg Route: Sub-Q; Site: abdomen; vc1 22:58 Follow up: Response: No adverse reaction; Medication administered at discharge. vc1 23:00 Follow up: Response: No adverse reaction vc1 Disposition Summary: 10/07/21 22:40 Discharge Ordered Location: Home(10/07/21 22:40) cp Problem: new(10/07/21 22:40) cp Symptoms: have improved(10/07/21 22:40) cp Condition: Stable(10/07/21 22:40) cp Diagnosis - Chest pain, unspecified(10/07/21 22:40) cp Followup: cp - With: Private Physician - When: 1 - 2 days - Reason: Recheck today's complaints Discharge Instructions: - Discharge Summary Sheet cp - Nonspecific Chest Pain, Adult cp Forms: - Medication Reconciliation Form cp - Thank You Letter cp - Antibiotic Education cp - Prescription Opioid Use cp Prescriptions: - albuterol sulfate 90 mcg/actuation Inhalation HFA aerosol inhaler - inhale 1 puff by INHALATION route every 4-6 hours; 1 Inhaler; Refills: 0, cp Product Selection Permitted - Diclofenac Sodium 75 mg Oral Tablet Sustained Release - take 1 tablet by ORAL route 2 times per day; 30 tablet; Refills: 0, Product cp Selection Permitted Signatures: Dispatcher [employer] EDMaeve Jo RN RN bb Lamberto Levy PA PA cp Garcia, Victoria, RN RN vg1 Lexie Thakur RN RN vc1 Xena Chavez PA PA sb3 Corrections: (The following items were deleted from the chart) 22:40 22:33 Observation cp cp 22:40 22:33 Tessie Ruffin cp cp 22:40 22:33 Telemetry/MedSurg (observation) cp cp 22:40 22:33 Stable cp cp 22:40 22:33 new cp cp 22:40 22:33 have improved cp cp 22:40 22:33 Standard cp cp 22:40 22:33 cp cp 22:40 22:33 Chest pain, unspecified cp cp
[2021-10-07] MEDS ORDERED: ENOXAPARIN 80 MG/0.8 ML SQ ONE (22:58)
[2021-10-07 23:30] VITALS: BP 119/82; TEMP 97.7; O2SAT 98
--- NOTE | 2021-10-08 11:07 | EKG ---
Test Date: 2021-10-07 Test Time: 20:59:17 Buckle Inspector: MEASUREMENT RESULTS: Intervals: Rate: 69 OK: 162 QRSD: 84 QT: 400 QTc: 428 [place]: P: 61 OK: 162 QRS: 89 T: 76 INTERPRETIVE STATEMENTS: Normal sinus rhythm Normal ECG Compared to ECG 11/20/2020 14:30:50 Sinus arrhythmia no longer present Electronically Signed On 10-08-21 11:04:55 CDT by Alex Friend
== END 2021-10-07 22:59 | disposition home or self-care (01) ==
LOC: ER 18:26
DX: R07.9 Chest pain, unspecified (principal); Z91.09 Other allergy status, other than to drugs and biological substances; J45.909 Unspecified asthma, uncomplicated; D64.9 Anemia, unspecified; E87.6 Hypokalemia; Z20.822 Contact with and (suspected) exposure to COVID-19
CPT/HCPCS: 93005; 85025; 80048; 36415; 83735; 81025; 85610; 85379; 80076; 81003; 84484; 87804 ×2; 71046; U0003; 96372; 96374; 99284

== ENCOUNTER 2021-12-09 14:25 | Emergency (ER) | payer OTHER ==
--- OUTSIDE RECORDS SUMMARY | 2021-12-09 14:28 | XMS REPORT | Continuity of Care Document ---
:1985 Author Organization [facility] t Address [address] [place] [address] Care Team Providers Name Role Phone DESMOND Attending Clinician Unavailable Ok Motley DO Attending Clinician Doctor Unassigned, [place] Attending Clinician Unavailable Bebeto Willett Attending Clinician BEBETO MARROQUIN Attending Clinician Unavailable [facility] Nurse Vst, Fp Nrpt Pills Class Attending Clinician Unavailable DESMOND Admitting Clinician Unavailable Payers Payer Name Policy Type Policy Number Effective Date Expiration Date S ource Problems Condition Condition Condition Status Onset Resolution Last Treating Co mments Source Name Details Category Date Date Treatment Clinician Date No known No known Disease Unive rs active active ity of problems problems [facility] Allergies, Adverse Reactions, Alerts Allergy Allergy Status [...] rs INGREDI 3-10 ity of 00:00: [place] [facility] NO KNOWN Drug Active Univers ALLERGIE Class ity of [facility] Social History Social Habit Start Date Stop Date Quantity Comments Source History SDOH University o f Alcohol Std [place] [facility] History SDOH University o f Alcohol Binge [place] [facility] Alcohol intake 2019-07-05 2019-07-05 Lifetime University of 00:00:00 00:00:00 non-drinker [place] [facility] (finding) [facility] History SDOH 2019-07-05 2019-07-05 1 University o f Alcohol Frequency 00:00:00 00:00:00 [facility] edical Branch Tobacco use and 2019-07-05 2019-07-05 Never used Universit y of exposure 00:00:00 00:00:00 [facility] Sex Ass[birth year] Universit y of 00:00:00 00:00:00 [facility] Smoking Status Start Date Stop Date Source Unknown [facility] Never smoker [facility] Medications Ordered Filled Start Stop Current Ordering Indication Dosage Frequency Signature Comments Components Source Medication Medication Date Date Medication? Clinician (SIG) Name Name No known No Univers medications [facility] No known No Univers medications [facility] No known No Univers medications [facility] No known No Univers medications [facility] Immunizations Ordered Filled Immunization Date Status Comments Sourc e Immunization Name Name [facility] 2017-06-25 Completed [facility] 00:00:00 [facility] 2017-06-25 Completed University 00:00:00 [facility] 2017-06-25 Completed [facility] 00:00:00 [facility] 2017-06-25 Completed [facility] 00:00:00 [facility] Vital Signs Vital Name Observation Time Observation Value Comments Source Systolic blood 2019-07-05 19:38:00 121 mm[Hg] Univer sity of pressure [facility] Diastolic blood 2019-07-05 19:38:00 75 mm[Hg] Unive rsity of pressure [facility] Heart rate 2019-07-05 19:38:00 88 /min Universi ty [facility] Body temperature 2019-07-05 19:38:00 [facility].94 [facility] Res[facility] rate 2019-07-05 19:38:00 18 /min [facility] Body height 2019-07-05 19:38:00 161.3 cm [facility]i ty [facility] Body weight 2019-07-05 19:38:00 87.544 kg [facility] BMI 2019-07-05 19:38:00 33.65 kg/m2 [facility] Systolic blood 2019-07-05 19:38:00 121 mm[Hg] Univer sity of pressure [facility] Diastolic blood 2019-07-05 19:38:00 75 mm[Hg] Unive rsity of pressure [facility] Heart rate 2019-07-05 19:38:00 88 /min Universi ty [facility] Body temperature 2019-07-05 19:38:00 36.94 Jeni Univ ersity [facility] Respiratory rate 2019-07-05 19:38:00 18 /min Univ ersity of [facility] Body height 2019-07-05 19:38:00 161.3 cm [facility] Body weight 2019-07-05 19:38:00 87.544 kg [facility] BMI 2019-07-05 19:38:00 33.65 kg/m2 [facility] Diastolic blood 2019-06-21 17:03:00 70 mm[Hg] Unive rsity of pressure [facility] Heart rate 2019-06-21 17:03:00 80 /min [facility]i [facility] Body temperature 2019-06-21 17:03:00 36.89 Jeni Univ ersity [facility] Respiratory rate 2019-06-21 17:03:00 18 /min Univ ersity of [facility] Body height 2019-06-21 17:03:00 161.3 cm [facility] Body weight 2019-06-21 17:03:00 88.225 kg [facility] BMI 2019-06-21 17:03:00 33.91 kg/m2 [facility] Systolic blood 2019-06-21 17:03:00 127 mm[Hg] Univer sity of [facility] Procedures Procedure Date / Time Performed Performing Clinician Sour e POCT TEST 2019-07-05 19:45:00 Bebeto Marroquin [facility] POCT TEST 2019-06-21 17:05:00 Bebeto Marroquin ity of [facility] ASSIGNMENT OF BENEFITS 2019-06-21 16:08:13 Doctor Unassigned, No [facility] Encounters Start End Encounter Admission Attending Care Care Encounter Source Date/Time Date/Time Type Type Clinicians Facility Department ID 2021-11-15 2021-11-15 Outpatient AMBREEN_DEMI GRAY [facility] [id number] [place] 10:51:00 10:51:00 [facility] 2020-07-17 2020-07-17 Patient Tolu OHJACOBO [id number] Univers 00:00:00 00:00:00 [place] [id number] i [place] [id number] [place] [phone] [place] [address] Branch 2020-07-17 2020-07-17 Patient SHEY Motley [id number] 00:00:00 00:00:00 [place] [id number] Johann CARE [id number] PAVILLION [id number] 2019-07-08 2019-07-08 Patient Doctor [place] [id number] Univers 00:00:00 00:00:00 Secure Msg Unassigned, BARREL RIFLER [id number] ity of [place] REGIONAL [id number] Juan as MATERNAL [phone] Med ical & CHILD [address] [place] [address] 2019-07-08 2019-07-08 Patient Doctor [facility] [id number] 00:00:00 00:00:00 Secure Msg Unassigned, BAR[place] RIFLER [id number] [place] REGIONAL [id number] MATERNAL [id number] & CHILD [address] [place] [address] 2019-07-05 2019-07-05 Office SHEY Marroquin [id number] Univers 14:08:45 16:01:30 Visit Bebeto BARREL RIFLER [id number] i ty of REGIONAL [id number] Juan as MATERNAL [id number] [facility] ical & CHILD [address] [place] [address] 2019-07-05 2019-07-05 Office Cecilia [facility] [id number] 14:08:45 16:01:30 Visit Bebeto BARREL RIFLER [id number] REGIONAL [id number] MATERNAL [id number] & CHILD [address] [place] [address] 2019-07-05 2019-07-05 [facility] [id number] Univers 14:15:00 14:15:00 BEBETO [id number] ity o [facility] 2019-07-05 2019-07-05 [facility] [id number] Univers 14:15:00 14:15:00 BEBETO ity o [facility] 2019-06-21 2019-06-21 Nurse [facility] Nurse Vst, Fp Nrpt Pills [facility] [id number] Univers 10:34:52 11:22:36 Visit Bebeto Marroquin BARREL RIFLER [id number] ity of [facility] [id number] Juan as MATERNAL [id number] [facility] & [address] 2019-06-21 2019-06-21 [facility] [id number] Univers 10:00:00 10:00:00 BEBETO ity o [facility] 2019-06-21 2019-06-[address] [facility] [id number] Univers 09:45:00 09:45:00 [id number] ity of [facility] 2019-06-21 2019-06-21 [facility] [id number] Univers 09:45:00 09:45:00 BEBETO ity o [facility] 2019-06-21 2019-06-21 Orders Doctor LUIS [id number] Univers 00:00:00 00:00:00 Only Unassigned, PIPER [id number] ity of [place] [facility] [id number] Juan as [phone] [address] Results Test Description Test Time Test Comments Results Result Comments Source POCT TEST 2019-07-05 19:45:00 Test Item Value Reference Range Interpretation Comme nts POCT PREG (test code = 1605) Negative On board controls acceptable with C Line (test code = 3574) Yes POCT PREG LOT # (test code = 3575) POCT PREG TEST DATE (test code = 3576) [id number] 19:45:00 Test Item Value Reference Range Interpretation Comments POCT PREG (test code = 1605) Negative On board controls acceptable with C Yes Line (test code = 3574) POCT PREG LOT # (test code = 3575) POCT PREG TEST DATE (test code = 3576) [facility] [id number] 17:05:00 Test Item Value Reference Range Interpretation Comments POCT PREG (test code = 1605) Negative On board controls acceptable with C Yes Line (test code = 3574) POCT PREG LOT # (test code = 3575) POCT PREG TEST DATE (test code = 3576) [facility]
[2021-12-09] MEDS ORDERED: MORPHINE 4 MG/ML SYR ONE (15:43)
[2021-12-09] MEDS ORDERED: ONDANSETRON 4 MG (ODT) TAB ONE (15:43)
[2021-12-09 16:37] LABS: Urine Blood 2+ (Negative); Urine Glucose Negative (Negative); Urine Protein 1+ (Negative); Urine Specific Gravity 1.015 (1.005-1.030)
[2021-12-09 17:26] LABS: Absolute Lymphocytes (CBC) 1.9 K/uL (0.7-4.9); Hematocrit 32.5 % (36.0-45.0); Lymphocytes % 16.5 % (15.3-44.8); MPV 7.9 fL (7.6-11.3); RBC Red Blood Cell Count 4.11 M/uL (3.86-4.86)
[2021-12-09 17:35] LABS: ALT/SGPT 41 U/L (12-78); AST/SGOT 21 U/L (15-37); Albumin 3.9 g/dL (3.4-5.0); Alkaline Phosphatase 120 U/L (45-117); Bicarbonate 26 mmol/L (21-32); Bilirubin Total 0.3 mg/dL (0.2-1.0); Glomerular Filtration Rate 118 ml/min (=/>90); Glucose Level 112 mg/dL (74-106); Lipase 73 U/L (73-393); Potassium 4.2 mmol/L (3.5-5.1); Protein, Total 7.9 g/dL (6.4-8.2); Sodium Level 138 mmol/L (136-145)
[2021-12-09 17:37] LABS: BUN Blood Urea Nitrogen < 3 mg/dL (7-18)
--- NOTE | 2021-12-09 17:50 | RAD REPORT ---
EXAM DESCRIPTION: CT - Stone Protocol - 12/09/2021 5:37 pm CLINICAL HISTORY: Abdominal pain. Left flank pain COMPARISON: None. TECHNIQUE: Computed axial tomography of the abdomen pelvis was obtained without oral or IV contrast. Lack of IV and oral contrast limits evaluation of solid organs, appendix, bowel, and vessels. Vu l reformatted images were obtained and reviewed. All CT scans are performed using dose optimization technique as appropriate and may include automated exposure control or mA/KV adjustment according to patient size. FINDINGS: Mild left hydronephrosis. A renal calculus is not seen. An ureteral calculus is not noted. A bladder calculus is not present. The liver, spleen, pancreas and adrenals appear grossly normal There is no evidence of diverticulitis. The appendix appears normal No adnexal mass IMPRESSION: Mild left hydronephrosis without visualization of a genitourinary calculus
[2021-12-09] MEDS ORDERED: CEFTRIAXONE 2000 MG/VIAL ONE (18:28)
--- NOTE | 2021-12-09 18:41 | ER ---
Nurse's Notes [facility] Name: Britney Barroso Age: 35 yrs Sex: Female : 1985 Arrival Date: 12/09/2021 Time: 14:30 Bed 26 Private MD: Diagnosis: Hydroureter;Unspecified renal colic;UTI/ Urinary tract infection, site not specified Presentation: 12/09 15:28 Chief complaint: Patient states: L flank pain since yesterday, appears restless and ph uncomfortable, denies burning w/ urination, also denies N/V/D. Coronavirus screen: Vaccine status: Patient reports being unvaccinated. Ebola Screen: No symptoms or risks identified at this time. Initial Sepsis Screen: Does the patient meet any 2 criteria? No. Patient's initial sepsis screen is negative. Does the patient have a suspected source of infection? No. Patient's initial sepsis screen is negative. Risk Assessment: Do you want to hurt yourself or someone else? Patient reports no desire to harm self or others. Onset of symptoms was December 09, 2021. 15:28 Method Of Arrival: Ambulatory ph 15:28 Acuity: CHRIS 3 ph Triage Assessment: 15:31 General: Appears in no apparent distress. uncomfortable, Behavior is cooperative, ph appropriate for age. Pain: Complains of pain in posterior aspect of left lateral abdomen and anterior aspect of left lateral abdomen. Neuro: Level of Consciousness is awake, alert, obeys commands, Oriented to person, place, time, situation. GI: Reports lower abdominal pain. : Reports pain in left flank(s). Musculoskeletal: Circulation, motion, and sensation intact. Range of motion:. Historical: - Allergies: 15:30 Benadryl; ph 15:30 Iodine; ph - PMHx: 15:30 Anemia; Asthma; Hypokalemia; ph - PSHx: 15:30 section; ph - Immunization history:: Adult Immunizations unknown. - Social history:: Smoking status: Patient denies any tobacco usage or history of. Screenin:27 Abuse screen: Denies threats or abuse. Denies injuries from another. Nutritional ld1 screening: No deficits noted. Tuberculosis screening: No symptoms or risk factors identified. Fall Risk None identified. Assessment: 18:27 General: Appears in no apparent distress. comfortable, Behavior is calm, cooperative, ld1 appropriate for age. Pain: Complains of pain in left low back Pain does not radiate. Pain currently is 7 out of 10 on a pain scale. Quality of pain is described as throbbing. Neuro: Level of Consciousness is awake, alert, obeys commands, Oriented to person, place, time, situation. Cardiovascular: Capillary refill < 3 seconds Patient's skin is warm and dry. Respiratory: Airway is patent Respiratory effort is even, unlabored. GI: Abdomen is round non-distended. : No signs and/or symptoms were reported regarding the genitourinary system. EENT: No signs and/or symptoms were reported regarding the EENT system. Derm: No signs and/or symptoms reported regarding the dermatologic system. Musculoskeletal: No signs and/or symptoms reported regarding the musculoskeletal system. Vital Signs: 15:28 BP 116 / 93; Pulse 95; Resp 22; Temp 98.0; Pulse Ox 100% on R/A; Weight 99.79 kg; ph Height 2 ft. 53 in. (195.58 cm); 18:27 BP 118 / 90; Pulse 91; Resp 20; Pulse Ox 100% on R/A; ld1 15:28 Body Mass Index 26.09 (99.79 kg, 195.58 cm) ph ED Course: 14:30 Patient arrived in ED. mr 15:20 Alf Villeda DO is Attending Physician. ms3 15:22 Kya Juarez FNP-C is PHCP. snw 15:30 Triage completed. ph 15:31 Arm band placed on Patient placed in waiting room, Patient notified of wait time. CT ph ordered. pain medication ordered. 17:39 CT Stone Protocol In Process Unspecified. EDMS 18:27 Мария Golden, SHARIFA is Primary Nurse. ld1 18:27 Patient has correct armband on for positive identification. Placed in gown. Bed in low ld1 position. Call light in reach. Side rails up X2. cardiac monitor on. Pulse ox on. NIBP on. Notified ED physician of. Door closed. Noise minimized. Warm blanket given. 18:27 No provider procedures requiring assistance completed. Inserted saline lock: 20 gauge ld1 in left antecubital area, using aseptic technique. Blood collected. 19:03 IV discontinued, intact, bleeding controlled, No redness/swelling at site. ld1 Administered Medications: 15:41 Drug: morphine 4 mg Route: IM; Site: right deltoid; ph 15:41 Drug: Ondansetron 4 mg Route: PO; ph 18:26 Drug: Rocephin (cefTRIAXone) 2 grams Route: IV; Rate: calculated rate; Site: left ld1 antecubital; Medication: 18:27 VIS not applicable for this client. ld1 Outcome: 18:40 Discharge ordered by MD. uribe 19:03 Discharged to home ambulatory. ld1 19:03 Condition: stable 19:03 Discharge instructions given to patient, family, Instructed on discharge instructions, follow up and referral plans. medication usage, Demonstrated understanding of instructions, follow-up care, medications, Prescriptions given X 2. 19:03 Patient left the ED. ld1 Signatures: Dispatcher [employer] EDMS Kya Juarez, PROJECT DEVELOPER-C PROJECT DEVELOPER-Csnw Sheila Goramn Patricia, RN RN Alf Villeda DO DO ms3 Мария Golden RN RN ld1
--- NOTE | 2021-12-09 18:42 | EDPHYS ---
Physician Documentation [facility] Name: Britney Barroso Age: 35 yrs Sex: Female : 1985 Arrival Date: 12/09/2021 Time: 14:30 Bed 26 Private MD: ED Physician Alf Villeda HPI: 12/09 15:35 This 35 yrs old Female presents to ER via Ambulatory with complaints of Flank Pain. snw 15:35 The patient complains of pain in the left mid back. The pain does not radiate. Onset: snw The symptoms/episode began/occurred suddenly, yesterday, and became persistent today. Associated signs and symptoms: Pertinent positives: nausea. Severity of pain: At its worst the pain was severe in the emergency department the pain is unchanged. The patient has not experienced similar symptoms in the past. It is unknown whether or not the patient has recently seen a physician, seen at [facility]. Historical: - Allergies: 15:30 Benadryl; ph 15:30 Iodine; ph - PMHx: 15:30 Anemia; Asthma; Hypokalemia; ph - PSHx: 15:30 section; ph - Immunization history:: Adult Immunizations unknown. - Social history:: Smoking status: Patient denies any tobacco usage or history of. ROS: 15:34 Constitutional: Negative for fever, chills, and weight loss, Eyes: Negative for injury, snw pain, redness, and discharge, ENT: Negative for injury, pain, and discharge, Neck: Negative for injury, pain, and swelling, Cardiovascular: Negative for chest pain, palpitations, and edema, Respiratory: Negative for shortness of breath, cough, wheezing, and pleuritic chest pain, Abdomen/GI: Negative for abdominal pain, nausea, vomiting, diarrhea, and constipation, : Negative for injury, bleeding, discharge, and swelling, MS/Extremity: Negative for injury and deformity, Skin: Negative for injury, rash, and discoloration, Neuro: Negative for headache, weakness, numbness, tingling, and seizure, Psych: Negative for depression, anxiety, suicide ideation, homicidal ideation, and hallucinations. 15:34 Back: Positive for flank pain, on the left. Exam: 15:34 Head/Face: Normocephalic, atraumatic. Eyes: Pupils equal round and reactive to light, snw extra-ocular motions intact. Lids and lashes normal. Conjunctiva and sclera are non-icteric and not injected. Cornea within normal limits. Periorbital areas with no swelling, redness, or edema. ENT: Nares patent. No nasal discharge, no septal abnormalities noted. Tympanic membranes are normal and external auditory canals are clear. Oropharynx with no redness, swelling, or masses, exudates, or evidence of obstruction, uvula midline. Mucous membranes moist. Neck: Trachea midline, no thyromegaly or masses palpated, and no cervical lymphadenopathy. Supple, full range of motion without nuchal rigidity, or vertebral point tenderness. No Meningismus. Chest/axilla: Normal chest wall appearance and motion. Nontender with no deformity. No lesions are appreciated. Cardiovascular: Regular rate and rhythm with a normal S1 and S2. No gallops, murmurs, or rubs. Normal PMI, no JVD. No pulse deficits. Respiratory: Lungs have equal breath sounds bilaterally, clear to auscultation and percussion. No rales, rhonchi or wheezes noted. No increased work of breathing, no retractions or nasal flaring. Abdomen/GI: Soft, non-tender, with normal bowel sounds. No distension or tympany. No guarding or rebound. No evidence of tenderness throughout. 15:34 Skin: Warm, dry with normal turgor. Normal color with no rashes, no lesions, and no evidence of cellulitis. MS/ Extremity: Pulses equal, no cyanosis. Neurovascular intact. Full, normal range of motion. Neuro: Awake and alert, GCS 15, oriented to person, place, time, and situation. Cranial nerves II-XII grossly intact. Motor strength 5/5 in all extremities. Sensory grossly intact. Cerebellar exam normal. Normal gait. Psych: Awake, alert, with orientation to person, place and time. Behavior, mood, and affect are within normal limits. 15:34 Constitutional: The patient appears alert, awake, anxious, restless. 15:34 Back: pain, that is moderate, that is severe, of the left mid back, CVA tenderness, that is moderate, is noted on the left. Vital Signs: 15:28 BP 116 / 93; Pulse 95; Resp 22; Temp 98.0; Pulse Ox 100% on R/A; Weight 99.79 kg; ph Height 2 ft. 53 in. (195.58 cm); 18:27 BP 118 / 90; Pulse 91; Resp 20; Pulse Ox 100% on R/A; ld1 15:28 Body Mass Index 26.09 (99.79 kg, 195.58 cm) ph MDM: 15:32 Patient medically screened. snw 18:45 Data reviewed: vital signs, nurses notes. Data interpreted: Pulse oximetry: on room air snw is 100 %. Interpretation: normal. Counseling: I had a detailed discussion with the patient and/or guardian regarding: the historical points, exam findings, and any diagnostic results supporting the discharge/admit diagnosis, the presence of at least one elevated blood pressure reading (>120/80) during this emergency department visit, lab results, radiology results, the need for outpatient follow up, to return to the emergency department if symptoms worsen or persist or if there are any questions or concerns that arise at home. Response to treatment: the patient's symptoms have markedly improved after treatment. Special discussion: Based on the history and exam findings, there is no indication for further emergent testing or inpatient evaluation. I discussed with the patient/guardian the need to see the primary care provider for further evaluation of the symptoms. 12/09 15:34 Order name: CBC with Diff; Complete Time: 17:28 snw 12/09 15:34 Order name: CMP; Complete Time: 18:01 snw 12/09 15:34 Order name: Lipase; Complete Time: 18:01 snw 12/09 15:34 Order name: Urine Culture snw 12/09 16:38 Order name: Urine Dipstick-Ancillary; Complete Time: 16:51 EDMS 12/09 16:55 Order name: Urine --Ancillary (enter results); Complete Time: 22:05 bd 12/09 15:34 Order name: IV Saline Lock; Complete Time: 17:17 snw 12/09 15:34 Order name: Labs collected and sent; Complete Time: 17:17 snw 12/09 15:34 Order name: Urine Dipstick-Ancillary (obtain specimen); Complete Time: 15:41 snw 12/09 15:34 Order name: Urine Test (obtain specimen); Complete Time: 15:41 snw 12/09 15:34 Order name: CT Stone Protocol; Complete Time: 18:01 snw Administered Medications: 15:41 Drug: morphine 4 mg Route: IM; Site: right deltoid; ph 15:41 Drug: Ondansetron 4 mg Route: PO; ph 18:26 Drug: Rocephin (cefTRIAXone) 2 grams Route: IV; Rate: calculated rate; Site: left ld1 antecubital; Disposition: 22:05 Co-signature as Attending Physician, Alf Villeda DO I agree with the assessment and ms3 plan of care. Disposition Summary: 12/09/21 18:40 Discharge Ordered Location: Home snw Condition: Stable snw Diagnosis - Hydroureter snw - Unspecified renal colic snw - UTI/ Urinary tract infection, site not specified snw Followup: snw - With: Emergency Department - When: As needed - Reason: Worsening of condition Followup: snw - With: Private Physician - When: 2 - 3 days - Reason: Recheck today's complaints, Continuance of care, Re-evaluation by your physician Discharge Instructions: - Discharge Summary Sheet snw - Kidney Stones snw - Renal Colic snw - Urinary Tract Infection, Adult snw Forms: - Medication Reconciliation Form snw - Thank You Letter snw - Antibiotic Education snw - Prescription Opioid Use snw - Work release form snw Prescriptions: - Augmentin 875-125 mg Oral Tablet - take 1 tablet by ORAL route every 12 hours for 10 days; 20 tablet; Refills: 0, snw Product Selection Permitted - Diclofenac Sodium 75 mg Oral Tablet Sustained Release - take 1 tablet by ORAL route 2 times per day; 30 tablet; Refills: 0, Product snw Selection Permitted Signatures: Dispatcher [employer] Kya Cannon FNP-C FNP-Aletaw Georgie Reilly, RN RN ph Alf Villeda DO DO ms3 Мария Golden RN RN ld1
[2021-12-09 19:28] LABS: Urine Specific Gravity/Preg 1.015 (1.005-1.030)
[2021-12-09 20:27] VITALS: TEMP 98; O2SAT 100
[2021-12-09 20:30] VITALS: BP 118/90
== END 2021-12-09 19:03 | disposition home or self-care (01) ==
LOC: ER 14:25
DX: N39.0 Urinary tract infection, site not specified (principal); N13.4 Hydroureter; N23 Unspecified renal colic; Z88.8 Allergy status to other drugs, medicaments and biological substances; Z91.048 Other nonmedicinal substance allergy status
CPT/HCPCS: 87088; 85025; 87086; 36415; 81025; 81003; 83690; 80053; 76377; 74176; Q0162; J0696; 87077; 87186; 96372; 96374; 99284

== ENCOUNTER 2022-11-03 13:22 | Emergency (ER) | payer OTHER ==
--- OUTSIDE RECORDS SUMMARY | 2022-11-03 13:25 | XMS REPORT | Continuity of Care Document ---
:1985 Author Organization [facility] t Address [address] [facility]. [address] [place] [address] Care Team Providers Name Role Phone Asked, No Pcp Primary Care Physician Unavailable William Amaya Attending Clinician Unavailable DESMOND Attending Clinician Unavailable Ok Motley DO Attending Clinician Doctor Unassigned, [place] Attending Clinician Unavailable Bebeto Willett Attending Clinician BEBETO MARROQUIN Attending Clinician Unavailable [facility] Nurse Vst, Fp Nrpt Pills Class Attending Clinician Unavailable HIEN GAN Attending Clinician Unavailable PREM KING Attending Clinician Unavailable DESMOND Admitting Clinician Unavailable Payers Payer Name Policy Type Policy Number Effective Date Expiration Date S ource Problems Condition Condition Condition Status Onset Resolution Last Treating Co mments Source Name Details Category Date Date Treatment Clinician Date No known No known Disease Unive rs active active ity of problems problems [facility] Allergies, Adverse Reactions, Alerts Allergy Allergy Status Severity Reaction(s) Onset Inactive Treating Comm ents Source Name Type Date Date Clinician Jean Claude Holder Active Palpitations Increas ed Univers Steri-Do ty to 3-10 HR >200 ity of se adverse 00:00: per [place] reaction 00 patient Medical s with IV Branch benadryl Iodine Propensi Active Anaphylaxis 2019- Uni vers ty to 3-10 ity of adverse 00:00: [place] reaction 00 Medical s Branch BENADRYL DRUG Active Palpitations 2019- Un simran STERI-DO 3-10 ity of SE 00:00: Medical Branch IODINE DRUG Active Anaphylaxis Unive rs INGREDI 3-10 ity of 00:00: Medical Branch Iodine Propensi Active Anaphylaxis 2017- Met hodi ty to 08-16 st adverse 00:00: Hospita reaction 00 l s to drug Shellfis Propensi Active Anaphylaxis 2017- M ethodi h ty to 08-16 st Derived adverse 00:00: Hospita reaction 00 l s to drug NO KNOWN Drug Active Univers ALLERGIE Class ity of S [facility] Social History Social Habit Start Date Stop Date Quantity Comments Source History [facility] University o f Alcohol Std Drinks [facility] History [facility] University o f Alcohol Binge [facility] [place] Gender identity [facility] Sexual orientation [facility] 2019-07-05 2019-07-05 1 University o f Alcohol [facility]:00[facility] [place] Tobacco use and 2019-07-05 2019-07-05 Never used Universit y of exposure 00:00:00 00:00:00 [facility] History of Social 2018-03-13 2018-03-[address] function 00:00:00 00:00:00 Hospital Alcohol intake 2017-08-16 2017-08-16 Current [facility] 00:00:00 00:00:00 non-drinker of Hospital alcohol (finding) Sex Ass[birth year] [facility] 00:00:00 00[facility]00:00 [facility] Smoking Status Start Date Stop Date Source Unknown if ever smoked Universit y [facility] Never smoker [facility] Medications Ordered Filled Start Stop Current Ordering Indication Dosage Frequency Signature Comments Components Source Medication Medication Date Date Medication? Clinician (SIG) Name Name No known No Univers medications [facility] No known No Univers medications [facility] No known No Univers medications [facility] No known No Univers medications [facility] Immunizations Ordered Filled Immunization Date Status Comments Sourc e Immunization Name Name Tdap 2017-06-25 Completed University of 00:00:00 [facility] Tdap 2017-06-25 Completed University 00:00:00 [facility] Tdap 2017-06-25 Completed University of 00:00:00 [facility] TDAP 2017-06-25 Completed University 00:00:00 [facility] Vital Signs Vital Name Observation Time Observation Value Comments Source Systolic blood 2019-07-05 19:38:00 121 mm[Hg] Univer sity of pressure [facility] Diastolic blood 2019-07-05 19:38:00 75 mm[Hg] Unive rsity of pressure [facility] Heart rate 2019-07-05 19:38:00 88 /min Universi ty [facility] Body temperature 2019-07-05 19:38:00 36.94 Jeni Univ ersity of [facility] Respiratory rate 2019-07-05 19:38:00 18 /min Univ ersity of [facility] Body height 2019-07-05 19:38:00 161.3 cm [facility]i [facility] Body weight 2019-07-05 19:38:00 87.544 kg [facility] BMI 2019-07-05 19:38:00 33.65 kg/m2 [facility] Systolic blood 2019-07-05 19:38:00 121 mm[Hg] Univer sity of pressure [facility] Diastolic blood 2019-07-05 19:38:00 75 mm[Hg] Unive rsity of pressure [facility] Heart rate 2019-07-05 19:38:00 88 /min [facility] Body temperature 2019-07-05 19:38:00 36.94 Jeni Univ [facility] Respiratory rate 2019-07-05 19:38:00 18 /min Univ ersity of [facility] Body height 2019-07-05 19:38:00 161.3 cm [facility] Body weight 2019-07-05 19:38:00 87.544 kg [facility] BMI 2019-07-05 19:38:00 33.65 kg/m2 [facility]i [facility] Heart rate 2019-06-21 17:03:00 80 /min [facility] Body temperature 2019-06-21 17:03:00 36.89 Jeni [facility] Respiratory rate 2019-06-21 17:03:00 18 /min [facility] Body height 2019-06-21 17:03:00 161.3 cm [facility] Body weight 2019-06-21 17:03:00 88.225 kg [facility] BMI 2019-06-21 17:03:00 33.91 kg/m2 [facility] Systolic blood 2019-06-21 17:03:00 127 mm[Hg[facility] 2019-06-21 17:03:00 70 mm[facility]Hg[facility] Procedure Date / Time Performed Performing Clinician Sourc e POCT TEST 2019-07-05 19:45:00 Bebeto Marroquin [facility] POCT TEST 2019-06-21 17:05:00 Bebeto Marroquin [facility] ASSIGNMENT OF BENEFITS 2019-06-21 16:08:13 Doctor Unassigned, No [facility] Plan of Care Planned Activity Planned Date Details Comments Source Future Scheduled 2022-10-16 COVID-19 VACCINE [facility] Test 02:39:05 (#1) [code = COVID-19 VACCINE (#1)] Future Scheduled 2022-10-16 Screening for [facility] Test 02:39:05 malignant neoplasm of cervix (procedure) [code = 701652818] Future Scheduled 2022-10-16 INFLUENZA VACCINE [facility] Test 02:39:05 [code = INFLUENZA VACCINE] Future Scheduled 2022-04-17 [facility] Test 05:07:15 malignant neoplasm of cervix (procedure) [code = 479758311] Future Scheduled 2022-04-17 IN[facility]ENZA VACCINE [facility] Test 05:07:15 [code = INFLUENZA VACCINE] Future Scheduled 2022-04-17 COVID-[address] [facility] Test 05:07:15 (#1) [code = COVID-19 VACCINE (#1)] Future Scheduled 2022-04-17 [facility] Test 05:07:15 malignant neoplasm of cervix (procedure) [code = [id number]] Future Scheduled 2022-04-17 INFLUENZA VACCINE [facility] Test 05:07:15 [code = INFLUENZA VACCINE] Future Scheduled 2022-04-17 COVID-19 VACCINE [facility] Test 05:07:15 (#1) [code = COVID-19 VACCINE (#1)] Encounters Start End Encounter Admission Attending Care Care Encounter Source Date/Time Date/Time Type Type Clinicians Facility Department ID 2022-05-31 2022-05-31 emergency [id number] 10:36:00 13:38:00 [id number] 2022-05-31 2022-05-31 Emergency ER Monique, [facility] [id number] [place] 10:36:00 13:38:00 Frannie -[id number] Formerly [facility] 2021-11-15 2021-11-15 Outpatient [facility] [id number] [place] 10:51:00 10:51:00 MELISSA 0722 [facility] 2020-07-17 2020-07-17 Patient SHEY Motley [id number] 00:00:00 00:00:00 Outreach Ok PRIMARY [id number] Johann CARE [id number] PAVILLION [id number] 2020-07-17 2020-07-17 Patient SHEY Motley [id number] Univers 00:00:00 00:00:00 Outreach Ok PRIMARY [id number] i ty of Johann CARE [id number] Debi s TOMMY [phone] [place] [facility] [address] [place] 2019-07-08 2019-07-08 Patient Doctor SHEY [id number] 00:00:00 00:00:00 Secure Msg Unassigned, PSYCH ASSISTANT [id number] [place] REGIONAL [id number] MATERNAL [phone] & CHILD [address] [place] [address] 2019-07-08 2019-07-08 Patient Doctor [facility] [id number] Univers 00:00:00 00:00:00 Secure Msg Unassigned, PSYCH ASSISTANT [id number] ity of [place] [facility] [id number] Juan as MATERNAL [phone] [facility] & CHILD [address] [place] [address] 2019-07-05 2019-07-05 Office [facility] [id number] 14:08:45 16:01:30 Visit Bebeto PSYCH ASSISTANT [id number] REGIONAL [id number] MATERNAL [id number] [address] 2019-07-05 2019-07-05 Office [facility] [id number] Univers 14:08:45 16:01:30 Visit Bebeto PSYCH ASSISTANT [id number] i ty of [facility] [id number] Juan as MATERNAL [id number] [address] 2019-07-05 2019-07-05 Outpatient Pavan MARROQUIN [facility] [id number] Univers 14:15:00 14:15:00 BEBETO [facility] 2019-06-21 2019-06-21 Nurse Da-Rmchp Nurse Vst, Fp Nrpt Pills Class [facility] [id number] Univers 10:34:52 11:22:36 Visit Cecilia Bebeto PSYCH ASSISTANT [id number] ity of [facility] [id number] Juan as MATERNAL [id number] [address] 2019-06-21 2019-06-21 Outpatient Pavan MARROQUIN [facility] [id number] Univers 10:00:00 10:00:00 BEBETO [facility] 2019-06-21 2019-06-21 Outpatient Pavan MARROQUIN [facility] [id number] Univers 09:45:00 09:45:00 BEBETO [facility] 2019-06-21 2019-06-21 Orders Doctor TOBY [id number] Univers 00:00:00 00:00:00 Only Unassigned, PIPER [id number] ity of [place] [facility] [id number] [facility] as [id number] [address] 2017-02-09 2017-02-09 Emergency ER MALIK, [facility] [id number] [place] 19:35:00 19:54:00 HIEN -[id number] Formerly [facility] 2016-12-09 2016-12-09 Emergency ER CHRISTINE, [facility] [id number] [place] 11:10:00 12:21:00 PREM -[id number] [facility] Results Test Description Test Time Test Comments Results Result Comments Source POCT TEST 2019-07-05 19:45:00 Test Item Value Reference Range Interpretation Comme nts POCT PREG (test code = 1605) Negative On board controls acceptable with C Line (test code = 3574) Yes POCT PREG LOT # (test code = 3575) POCT PREG TEST DATE (test code = 3576) [id number] 19:45:00 Test Item Value Reference Range Interpretation Comments POCT PREG (test code = 1605) Negative On board controls acceptable with C Yes Line (test code = 3574) POCT PREG LOT # (test code = 3575) POCT PREG TEST DATE (test code = 3576) [facility] [id number] 17:05:00 Test Item Value Reference Range Interpretation Comments POCT PREG (test code = 1605) Negative On board controls acceptable with C Yes Line (test code = 3574) POCT PREG LOT # (test code = 3575) POCT PREG TEST DATE (test code = 3576) [facility]
--- NOTE | 2022-11-03 14:07 | RAD REPORT ---
EXAM DESCRIPTION: RAD - Ankle Left 3 View - 11/03/2022 1:58 pm CLINICAL HISTORY: PAIN COMPARISON: No comparisons FINDINGS/IMPRESSION: No acute fracture. No malalignment. Tiny plantar and dorsal aspect calcaneal sp urs.
[2022-11-03] MEDS ORDERED: CYCLOBENZAPRINE 10 MG TAB ONE (14:35)
[2022-11-03] MEDS ORDERED: KETOROLAC 30 MG/ML INJ ONE (14:36)
--- NOTE | 2022-11-03 15:14 | EDPHYS ---
Physician Documentation [facility] Name: Britney Barroso Age: 36 yrs Sex: Female : 1985 Arrival Date: 11/03/2022 Time: 13:22 Bed 20 Private MD: CAMRYN Physician Lamberto Parekh HPI: 11/03 15:15 This 36 yrs old Female presents to ER via Wheelchair with complaints of Fall Injury. sb4 13:36 Onset: The symptoms/episode began/occurred yesterday. Modifying factors: The symptoms sb4 are aggravated by activity, movement, The symptoms are alleviated by remaining still. Details of fall: The patient fell from an upright position, while walking. Onset: The symptoms/episode began/occurred yesterday. Associated injuries: The patient sustained painful injury, left ankle. Associated signs and symptoms: Pertinent negatives: lightheadedness, nausea, visual changes. 36 year old female with anemia and vertigo presents with left ankle pain/injury. She states that yesterday she was walking towards her car while it was raining and she slipped on the wet concrete. She is not sure what exactly happened to her ankle but say she heard/felt a crack. She states she woke up this morning and the pain had increased significantly. Historical: - Allergies: 14:30 Benadryl; eh3 14:30 Iodine; eh3 - PMHx: 14:30 Anemia; Asthma; Hypokalemia; eh3 - PSHx: 14:30 section; eh3 - Immunization history:: Adult Immunizations. - Social history:: Smoking status: Patient denies any tobacco usage or history of. ROS: 13:36 Constitutional: Negative for fever, chills, and weight loss. sb4 13:36 MS/extremity: Positive for injury or acute deformity, decreased range of motion, pain, swelling, Negative for ecchymosis, laceration, paresthesias, warmth. 13:36 All other systems are negative. Exam: 13:36 Constitutional: This is a well developed, well nourished patient who is awake, alert, sb4 and in no acute distress. Head/Face: Normocephalic, atraumatic. Eyes: Extra-ocular motions intact. Periorbital areas with no swelling, redness, or edema. Skin: Warm, dry with normal turgor. Normal color with no rashes, no lesions, and no evidence of cellulitis. Neuro: Awake and alert, GCS 15, oriented to person, place, time, and situation. Cranial nerves II-XII grossly intact. Motor strength 5/5 in all extremities. Sensory grossly intact. Cerebellar exam normal. Normal gait. 13:36 Musculoskeletal/extremity: Extremities: noted in the right ankle and anterior aspect of right ankle: decreased ROM, pain, swelling, tenderness, ROM: limited active range of motion due to pain, limited passive range of motion due to pain, Circulation is intact in all extremities. Sensation intact. Vital Signs: 13:33 BP 122 / 77; Pulse 90; Resp 16; Temp 98.1(TE); Pulse Ox 98% on R/A; Pain 8/10; cm10 13:33 Pain Scale: Adult cm10 MDM: 13:24 Patient medically screened. sb4 13:36 Differential diagnosis: fracture, sprain, contusion. sb4 15:13 Data reviewed: vital signs, nurses notes, radiologic studies, and as a result, I will sb4 discharge patient. Counseling: I had a detailed discussion with the patient and/or guardian regarding: the historical points, exam findings, and any diagnostic results supporting the discharge/admit diagnosis, radiology results, to return to the emergency department if symptoms worsen or persist or if there are any questions or concerns that arise at home. 11/03 13:36 Order name: Ankle Left 3 View XRAY; Complete Time: 14:16 sb4 11/03 15:10 Order name: Walking boot; Complete Time: 15:51 sb4 Administered Medications: 14:25 Drug: Ketorolac IM 30 mg Route: IM; Site: right deltoid; 3 15:10 Follow up: Response: No adverse reaction; Pain is decreased eh3 15:08 Not Given (Physician Discretion): Cyclobenzaprine PO 10 mg PO once sb4 Disposition Summary: 11/03/22 15:13 Discharge Ordered Location: Home sb4 Problem: new sb4 Symptoms: have improved sb4 Condition: Stable sb4 Diagnosis - Sprain of other ligament of left ankle sb4 Followup: sb4 - With: - When: 7 - 10 days - Reason: Further diagnostic work-up, Recheck today's complaints, Re-evaluation by your physician Discharge Instructions: - Discharge Summary Sheet sb4 - Ankle Sprain, [id number] sb4 - Ankle Sprain, Phase I Rehab sb4 Forms: - Work release form sb4 - Medication Reconciliation Form sb4 - Thank You Letter sb4 - Antibiotic Education sb4 - Prescription Opioid Use sb4 - [employer]_Portal_[email or web address].htm sb4 Prescriptions: - meloxicam 7.5 mg Oral tablet - take 1 tablet by ORAL route daily; 10 tablet; Refills: 0, Product Selection sb4 Permitted Signatures: Dispatcher [employer] Bailey Scott, RN RN eh3 Xena Chavez, PA-C PA-C sb4 Goldie Franklin RN RN cm10
--- NOTE | 2022-11-03 15:14 | ER ---
Nurse's Notes [facility] Name: Britney Barroso Age: 36 yrs Sex: Female : 1985 Arrival Date: 11/03/2022 Time: 13:22 Bed 20 Private MD: Diagnosis: Sprain of other ligament of left ankle Presentation: 11/03 13:33 Chief complaint: Patient states: slip and fall yesterday. Pt complaining of left ankle cm10 and foot pain. Coronavirus screen: Vaccine status: Patient reports being unvaccinated. Client denies travel out of the [place] in the last 14 days. Ebola Screen: Patient denies travel to an Ebola-affected area in the 21 days before illness onset. No symptoms or risks identified at this time. Initial Sepsis Screen: Does the patient meet any 2 criteria? No. Patient's initial sepsis screen is negative. Does the patient have a suspected source of infection? No. Patient's initial sepsis screen is negative. Risk Assessment: Do you want to hurt yourself or someone else? Patient reports no desire to harm self or others. Onset of symptoms was November 02, 2022. 13:33 Method Of Arrival: Wheelchair cm10 13:33 Acuity: CHRIS 4 cm10 Triage Assessment: 13:36 General: Appears in no apparent distress. comfortable, Behavior is calm, cooperative. cm10 Pain: Pain radiates to left leg Pain currently is 8 out of 10 on a pain scale. Quality of pain is described as shooting. Neuro: No deficits noted. Level of Consciousness is awake, alert, Oriented to person, place, time, situation. Cardiovascular: No deficits noted. Respiratory: No deficits noted. Airway is patent Respiratory effort is even, unlabored, Respiratory pattern is regular, symmetrical. Historical: - Allergies: 14:30 Benadryl; eh3 14:30 Iodine; eh3 - PMHx: 14:30 Anemia; Asthma; Hypokalemia; eh3 - PSHx: 14:30 section; eh3 - Immunization history:: Adult Immunizations. - Social history:: Smoking status: Patient denies any tobacco usage or history of. Screenin:30 [facility] ED Fall Risk Assessment (Adult) Score/Fall Risk Level 0 - 2 = Low Risk. Abuse eh3 screen: Denies threats or abuse. Denies injuries from another. Nutritional screening: No deficits noted. Tuberculosis screening: No symptoms or risk factors identified. Assessment: 14:18 Reassessment: No changes from previously documented assessment. Patient and/or family ll1 updated on plan of care and expected duration. Pain level reassessed. Patient is alert, oriented x 3, equal unlabored respirations, skin warm/dry/pink. Vital Signs: 13:33 BP 122 / 77; Pulse 90; Resp 16; Temp 98.1(TE); Pulse Ox 98% on R/A; Pain 8/10; cm10 13:33 Pain Scale: Adult cm10 ED Course: 13:23 Patient arrived in ED. rg4 13:24 Nancy Brown MD is Private Physician. rg4 13:24 Xena Chavez PA-C is [facility]. sb4 13:24 Lamberto Parekh MD is Attending Physician. sb4 13:35 Triage completed. cm10 13:36 Arm band placed on Patient placed in waiting room. cm10 13:50 Ankle Left 3 View XRAY In Process Unspecified. EDMS 14:18 Bailey Reilly, RN is Primary Nurse. eh3 14:18 Patient placed in an exam room, on a stretcher. ll1 14:30 Patient has correct armband on for positive identification. Bed in low position. Call eh3 light in reach. Provided Education on: N/A. 15:13 Nick Tran MD is Referral Physician. sb4 15:51 3D boot applied to left foot. eh3 15:53 No provider procedures requiring assistance completed. Patient did not have IV access eh3 during this emergency room visit. Administered Medications: 14:25 Drug: Ketorolac IM 30 mg Route: IM; Site: right deltoid; eh3 15:10 Follow up: Response: No adverse reaction; Pain is decreased eh3 15:08 Not Given (Physician Discretion): Cyclobenzaprine PO 10 mg PO once sb4 Medication: 15:53 VIS not applicable for this client. eh3 Outcome: 15:13 Discharge ordered by . sb4 15:53 Discharged to home ambulatory. eh3 15:53 Condition: stable 15:53 Discharge instructions given to patient, Instructed on discharge instructions, follow up and referral plans. medication usage, Demonstrated understanding of instructions, follow-up care, medications, splint care, Prescriptions given X 1. 16:01 Patient left the ED. eh3 Signatures: Dispatcher [employer] EDTara Stone rg4 Darnell Marsh RN RN ll1 Bailey Reilly RN RN eh3 Xena Chavez PA-C PA-C sb4 Goldie Franklin RN RN cm10
[2022-11-03 16:52] VITALS: BP 122/77; TEMP 98.1; O2SAT 98
== END 2022-11-03 16:01 | disposition home or self-care (01) ==
LOC: ER 13:22
DX: S93.492A Sprain of other ligament of left ankle, initial encounter (principal); Z88.8 Allergy status to other drugs, medicaments and biological substances; Z91.048 Other nonmedicinal substance allergy status
CPT/HCPCS: 96372; 99284

== ENCOUNTER → 2023-05-09 | Emergency (ER) | payer OTHER ==
--- NOTE | 2023-05-09 10:19 | RAD REPORT ---
EXAM DESCRIPTION: RAD - Chest Single View - 05/09/2023 10:14 am CLINICAL HISTORY: DYSPNEA Chest pain. COMPARISON: <Comparisons> FINDINGS: Portable technique limits examination quality. The lungs are grossly clear. The heart is normal in size. No displaced fractures. IMPRESSION: No acute intrathoracic process suspected.
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
[2023-05-09 12:02] VITALS: TEMP 98.7
[2023-05-09 12:16] VITALS: BP 124/93; O2SAT 100
--- NOTE | 2023-05-11 17:05 | EKG ---
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
== END ==
LOC: ER 09:38
DX: R06.00 Dyspnea, unspecified (principal); X01.0XXA Exposure to flames in uncontrolled fire, not in building or structure, initial encounter; Z91.013 Allergy to seafood; Z88.8 Allergy status to other drugs, medicaments and biological substances; Z91.048 Other nonmedicinal substance allergy status
CPT/HCPCS: 71045; 93005; 99283